=== PATIENT | female | born 1945 | race Caucasian/White ===

== ENCOUNTER 2016-09-30 17:26 | Inpatient (IN) | payer MEDICARE ==
[2016-09-30] VITALS (10 sets, daily range): BP systolic 124–220; BP diastolic 70–120
[~2016-09-30] VITALS: Ht 160 cm; Wt 47.7 kg
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
[~2016-09-30 17:26] MED LIST: ACETAMINOPHEN-H1 TA2 PO; AMLODIPINE BESY10 MG PO; AMOXICILLIN500 MG PO; ASPI-COR81 M1 PO; ASPIRIN CHEWABL81 MG PO; ASPIRIN81 M1 PO; AUGMENTIN 875 M1 TAB PO; AUGMENTIN 875875 MG PO; BACTROBAN2%; BENADRYL ALLERG25 M5 PO; BENADRYL25 MG PO; BISACODYL5 MG PO; CARAFATE1 G1 PO; CARAFATE1 GM/10 ML PO; CLARITIN10 MG PO; CLONAZEPAM2 MG PO; COREG25 MG PO; COREG6.25 MG PO; COZAAR100 MG PO; CYANOCOBALAMIN IJ; CYCLOBENZAPRINE10 MG PO; CYCLOBENZAPRINE5 MG PO; DARVOCET N 1001 TAB PO; DEMEROL IV; DESYREL50 MG PO; DIFLUCAN150 MG PO; DILANTIN; DILANTIN INFATA50 MG; DILANTIN INFATA50 MG PO; DILANTIN PO; DILANTIN100 MG PO; DOXYCYCLINE100 M3 PO; DULCOLAX100 MG PO; DULE1ARO1 INH; DUONEB 3 MG/3 ML3 M1 INH; DUONEB 3 MG/3 ML3 M1 NEB; Duoneb 3ML 3 MG/3 ML INH; EXCEDRIN EXTRA1 EACH PO; EXFORGE 10 MG-31 TA1; EXFORGE 10 MG-31 TAB PO; FIORICET 325 MG1 TAB PO; FLAGYL500 MG PO; FLEXERIL10 MG PO; FLEXERIL5 MG PO; FLONASE ALLERG9.9 ML INH; FLUTICASON0.05 MG/AC NAS; GABAPENTIN600 MG PO; HYDR1000 IM; HYDROCODONE BIT1 T11 PO; IMDUR SA60 M1 PO; IMDUR60 MG PO; ISOSORBIDE30 MG PO; K-TAB20 MEQ PO; KEPPRA500 MG PO; KLONOPIN1 M1 PO; KLONOPIN2 M1 PO; KLONOPIN2 MG PO; KLOR-CON 1010 ME1 PO; LAXATIVE5 MG PO; LEXAPRO10 MG PO; LIPITOR40 MG PO; LISINOPRIL10 M1 PO; LISINOPRIL20 MG PO; Lovenox30 MG/0.3 SC; MIRALAX17 GM/DOSE PO; MIRALAX17 GM/PACK PO; MUCINEX ER600 MG PO; MYCELEX TROCHE10 MG MM; NICOTINE T21 MG/24 H TD; NITROSTAT0.4 MG SL; NORCO 5-325 TA1 EACH PO; NORVASC10 MG PO; OYSTER SHELL C500 M2 PO; PERCOCET 325 MG1 TA2 PO; PHENERGAN25 MG RC; PHENYTOIN100 MG PO; PLAVIX75 M1 PO; PLAVIX75 MG PO; POTASSIUM CHLO20 ME1 PO; POTASSIUM CHLO20 ME3 PO; PRAVACHOL40 MG PO; PRAVASTATIN SOD40 MG PO; PREDNICOT20 MG PO; PRILOSEC OTC20 MG PO; PRILOSEC40 MG PO; PRINIVIL5 M1 PO; PROTONIX20 MG PO; PROTONIX40 MG PO; RANEXA500 M1 PO; SUCRALFATE; THERAGRAN1 TA1 PO; TOPAMAX100 M1 PO; TOPAMAX100 MG PO; TOPAMAX2 MG; TOPAMAX50 MG PO; TRAMADOL HCL50 MG PO; TRAZODONE100 MG PO; TRAZODONE50 MG; TRAZODONE50 MG PO; TYLENOL ARTHRI650 MG PO; TYLENOL ES500 MG; TYLENOL325 M1 PO; TYLENOL325 M2 PO; TYLENOL500 MG PO; ULTRAM50 MG PO; VENTOLIN 02.5 MG/3 M INH; VENTOLIN H0.09 MG/AC PO; VICODIN 5/500 505 MG PO; VICODIN1 TAB PO; VIT D; VITAMIN D2000 IU PO; VITAMIN D32000 I1 PO; ZITHROMAX Z PA250 MG PO; ZOFRAN4 MG PO; Zofran4 MG PO; [UNRECOGNIZED DRUG - OTHER] EPI; [UNRECOGNIZED DRUG - OTHER] IM
[2016-09-30 17:46] LABS: HEMATOCRIT 37.4 % (37.0-47.0); HEMOGLOBIN 12.5 g/dl (12.0-16.0); MEAN CELL VOLUME 86.6 fl (81.0-99.0); MEAN CORPUSCULAR HGB 28.9 pg (27.0-31.0); MEAN CORPUSCULAR HGB CONC 33.4 g/dl (33.0-37.0); PLATELET COUNT AUTOMATED 157 10*3/uL (130-400); RED BLOOD COUNT 4.32 10*6/uL (4.10-5.10); RED CELL DISTRI WIDTH 15.3 % (0-14.5); WHITE BLOOD COUNT 5.4 10*3/uL (4.8-10.8)
[2016-09-30 18:03] LABS: ALBUMIN 3.4 gm/dl (3.1-4.5); ALKALINE PHOSPHATASE 120 U/L (45-117); BILIRUBIN, TOTAL 0.2 mg/dl (0.2-1.0); BUN 12 mg/dl (7-24); CARBON DIOXIDE 26 mmol/L (21-32); CHLORIDE 100 mmol/L (98-107); EST GLOM FILT AFRICAN AMERICAN > 60 ml/min; GLUCOSE 87 mg/dL (65-99); MAGNESIUM 2.1 mg/dL (1.5-2.1); POTASSIUM 4.1 mmol/L (3.5-5.1); SGOT/AST 22 IU/L (3-35); SGPT/ALT 25 U/L (12-78); SODIUM 135 mmol/L (136-145); TOTAL PROTEIN 7.6 gm/dL (6.4-8.2)
[2016-09-30 18:04] LABS: TROPONIN I < 0.015 ng/ml (<0.045)
[2016-09-30 18:06] LABS: LYMPHOCYTE # 2.3 10*3/uL (1.3-4.4); MONOCYTE # 1.2 10*3/uL (0.1-1.0); NEUTROPHIL # 1.9 10*3/uL (2.3-7.9); NEUTROPHILS 35 % (47-73); TOTAL CELLS COUNTED 100 #CELLS
[2016-09-30 18:07] LABS: INTERNATIONAL NORM RATIO 1.1 (2.0-3.5); PLATELET SUFFICIENCY NORMAL (NORMAL); PROTHROMBIN TIME 11.2 SECONDS (9.0-12.4)
[2016-09-30] MEDS ORDERED: PLAVIX75 M1 PO (19:16)
[2016-09-30] MEDS ORDERED: PROTONIX40 MG PO (19:16)
[2016-09-30] MEDS ORDERED: KLONOPIN1 M1 PO (19:16)
[2016-09-30] MEDS ORDERED: DEBROX15 ML OT (19:17)
[2016-09-30] MEDS ORDERED: COREG12.5 M1 PO (19:17)
[2016-09-30] MEDS ORDERED: DILANTIN100 MG PO (19:17)
[2016-09-30] MEDS ORDERED: NEURONTIN600 MG PO (19:18)
[2016-09-30] MEDS ORDERED: KLOR-CON M2020 ME1 PO (19:18)
[2016-09-30] MEDS ORDERED: TOPAMAX100 M1 PO ×2 (19:18→19:19)
[2016-09-30] MEDS ORDERED: TRAZODONE50 MG PO (19:23)
[2016-09-30] MEDS ORDERED: TRAZODONE100 MG PO (20:45)
[2016-09-30 20:50] LABS: C-REACTIVE PROTEIN 0.67 MG/DL (0-0.3); TROPONIN I < 0.015 ng/ml (<0.045)
[2016-10-01 04:00] VITALS: BP 129/65
[2016-10-01 04:00] LABS: HEMOGLOBIN 11.7 g/dl (12.0-16.0); LYMPH # 0.7 10*3/uL (1.3-4.4); LYMPH % 23.6 % (27.0-41.0); MEAN CELL VOLUME 88.9 fl (81.0-99.0); MEAN CORPUSCULAR HGB 28.9 pg (27.0-31.0); MEAN CORPUSCULAR HGB CONC 32.5 g/dl (33.0-37.0); MEAN PLATELET VOLUME 10.5 fl (9.6-12.3); MONO # 0.2 10*3/uL (0.1-1.0); MONO % 7.7 % (3.0-9.0); NEUT % 68.4 % (47.0-73.0); PLATELET COUNT AUTOMATED 144 10*3/uL (130-400); RED BLOOD COUNT 4.05 10*6/uL (4.10-5.10); RED CELL DISTRI WIDTH 15.3 % (0-14.5)
[2016-10-01 04:10] LABS: PROTHROMBIN TIME 10.9 SECONDS (9.0-12.4)
[2016-10-01 04:15] LABS: ALBUMIN 3.3 gm/dl (3.1-4.5); ALKALINE PHOSPHATASE 107 U/L (45-117); BILIRUBIN, TOTAL 0.2 mg/dl (0.2-1.0); BUN 16 mg/dl (7-24); CARBON DIOXIDE 27 mmol/L (21-32); CHLORIDE 104 mmol/L (98-107); CHOLESTEROL 214 mg/dL (<200); CKMB 1.6 ng/ml (0.5-3.6); CPK 22 U/L (26-192); EST GLOM FILT AFRICAN AMERICAN > 60 ml/min; GLUCOSE 139 mg/dL (65-99); HDL CHOLESTEROL 62 mg/dl (40-60); LDL CHOLESTEROL 139 mg/dL (9-159); MAGNESIUM 2.5 mg/dL (1.5-2.1); PHOSPHOROUS 4.4 mg/dL (2.5-4.9); POTASSIUM 4.9 mmol/L (3.5-5.1); SGOT/AST 20 IU/L (3-35); SGPT/ALT 24 U/L (12-78); SODIUM 137 mmol/L (136-145); TOTAL PROTEIN 7.2 gm/dL (6.4-8.2); TRIGLYCERIDES 66 mg/dl (<150); TROPONIN I < 0.015 ng/ml (<0.045); VLDL CHOLESTEROL 13 mg/dL (6-40)
[2016-10-01 04:16] LABS: FREE T4 0.84 ng/dl (0.76-1.46); HEMOGLOBIN A1c 5.5 % (4.8-5.6)
[2016-10-01 08:00] VITALS: BP 153/90
[2016-10-01 08:42] LABS: VITAMIN D, 25-HYDROXY 36.8 ng/mL (30-100)
[2016-10-01 08:43] LABS: FOLIC ACID 4.15 ng/mL (>5.38)
[2016-10-01 08:58] VITALS: BP 162/90
[2016-10-01 16:00] VITALS: BP 150/86
[2016-10-01 20:00] VITALS: BP 139/84
[2016-10-02] VITALS: BP 127/74
[2016-10-02 05:58] LABS: HEMATOCRIT 34.4 % (37.0-47.0); MEAN CELL VOLUME 89.4 fl (81.0-99.0); MEAN CORPUSCULAR HGB 28.6 pg (27.0-31.0); MEAN PLATELET VOLUME 10.9 fl (9.6-12.3); PLATELET COUNT AUTOMATED 156 10*3/uL (130-400); RED BLOOD COUNT 3.85 10*6/uL (4.10-5.10); RED CELL DISTRI WIDTH 15.8 % (0-14.5); WHITE BLOOD COUNT 4.8 10*3/uL (4.8-10.8)
[2016-10-02 06:30] LABS: ATYPICAL LYMPHS 4 % (0-0); BASOPHIL # 0.1 10*3/uL (0-0.1); BASOPHILS 2 % (0-1); LYMPHOCYTE # 2.8 10*3/uL (1.3-4.4); MONOCYTE # 0.1 10*3/uL (0.1-1.0); MYELOCYTES 2 % (0-0); NEUTROPHIL # 1.6 10*3/uL (2.3-7.9); NEUTROPHILS 34 % (47-73); PLATELET SUFFICIENCY NORMAL (NORMAL); TOTAL CELLS COUNTED 100 #CELLS
[2016-10-02 08:00] VITALS: BP 144/82
[2016-10-02 16:00] VITALS: BP 166/84
[2016-10-02 20:00] VITALS: BP 160/72
== END 2016-10-03 05:20 | disposition left against medical advice (07) | DRG 305 ==
LOC: ED 17:26 → EDHOLD 18:27 → ICCU 18:50 → 4E 22:15
PROVIDERS: Hospitalist; Internal Medicine; Internal Medicine Hospice and Palliative Medicine; Registered Nurse
DX: I16.1 Hypertensive emergency (principal); E44.0 Moderate protein-calorie malnutrition; F33.2 Major depressive disorder, recurrent severe without psychotic features; E87.1 Hypo-osmolality and hyponatremia; Z68.1 Body mass index [BMI] 19.9 or less, adult; H61.21 Impacted cerumen, right ear; I25.118 Atherosclerotic heart disease of native coronary artery with other forms of angina pectoris; F34.1 Dysthymic disorder; F43.10 Post-traumatic stress disorder, unspecified; Z53.21 Procedure and treatment not carried out due to patient leaving prior to being seen by health care provider; F17.200 Nicotine dependence, unspecified, uncomplicated; G40.909 Epilepsy, unspecified, not intractable, without status epilepticus; R73.03 Prediabetes; F41.9 Anxiety disorder, unspecified; E53.8 Deficiency of other specified B group vitamins; G89.4 Chronic pain syndrome; I10 Essential (primary) hypertension; K21.9 Gastro-esophageal reflux disease without esophagitis; Z90.49 Acquired absence of other specified parts of digestive tract; Z95.5 Presence of coronary angioplasty implant and graft; Z90.721 Acquired absence of ovaries, unilateral; Z90.710 Acquired absence of both cervix and uterus; Z83.3 Family history of diabetes mellitus; Z80.8 Family history of malignant neoplasm of other organs or systems; Z88.6 Allergy status to analgesic agent; Z88.8 Allergy status to other drugs, medicaments and biological substances; Z91.041 Radiographic dye allergy status; Z79.899 Other long term (current) drug therapy

== ENCOUNTER 2017-04-01 14:08 | Inpatient (IN) | payer MEDICARE ==
[~2017-04-01] VITALS: Ht 165.1 cm; Wt 47.2 kg
--- NOTE | ~2017-04-01 | CON ---
[place], [place] REPORT OF CONSULTATION NAME: LUIS CARLOS HONEYCUTT UNIT #: [id number] ROOM: 407 DOCTOR: EVANS AMBROSE MD BIRTHDATE: [birth year] DOS: 04/03/2017 PSYCHIATRIC CONSULTATION CHIEF COMPLAINT: "I just want a regular ." HISTORY OF PRESENT ILLNESS: This is a 71-year-old white female who presented to [facility] Emergency Room with a complaint of having a seizure and having chest pain for a day. Per her report and chart, the patient states she has been without several of her home medications that include Dilantin and phenobarbital for several days. She did state that she fell and believed she had a seizure and was subsequently admitted to the medical floor for further medical stabilization and workup. Staff, since her admission, has noted that the patient has not been sleeping despite being given Restoril and trazodone. She has been awake throughout the entire night. Her appetite has also been somewhat faulty. She endorses that both of these things were occurring at home as well. She does have spotty memory loss and will often mix things that occurred in the distant past with the present. During my interview with her, her guardian was present and the guardian does note that her memory loss has been worsening over the last several months. To the point where she does feel that she needs more than the caregivers that she have currently in order to make certain that she stay safe. MENTAL STATUS: She is alert and oriented with significant time gaps. Mood does seem to be depressed. She is rather flat and blunted with her presentation and does endorse multiple neurovegetative symptoms. There are no symptoms of bertha or hypomania. There are no overt auditory or visual hallucinations noted. No delusions were voiced during my interview. DIAGNOSIS: Major depression, recurrent, severe. PLAN: I will go ahead and start her on Remeron 15 mg at bedtime. We are stopping the Restoril and trazodone. I will also order a prolactin level to make certain that she is not having seizures and is not exhibiting postictal confusion. After talking to her guardian and her, I do believe that she would benefit from a further [facility] admission to further evaluate and treat her underlying mental health issues. EVANS AMBROSE MD CM:CONSTR:REPORT OF CONSULTATION 1139 04/03/17 1245 interface
[~2017-04-01 14:08] MED LIST changes: +COREG12.5 M1 PO; +DEBROX15 ML OT; +KLOR-CON M2020 ME1 PO; +NEURONTIN600 MG PO
[2017-04-01 14:09] VITALS: BP 157/104
[2017-04-01 14:18] VITALS: BP 150/104
[2017-04-01 14:36] LABS: HEMATOCRIT 36.7 % (37.0-47.0); HEMOGLOBIN 12.1 g/dl (12.0-16.0); MEAN CELL VOLUME 85.7 fl (81.0-99.0); MEAN CORPUSCULAR HGB 28.3 pg (27.0-31.0); MEAN PLATELET VOLUME 12.1 fl (9.6-12.3); PLATELET COUNT AUTOMATED 132 10*3/uL (130-400); RED BLOOD COUNT 4.28 10*6/uL (4.10-5.10); RED CELL DISTRI WIDTH 16.3 % (0-14.5); WHITE BLOOD COUNT 4.4 10*3/uL (4.8-10.8)
[2017-04-01 14:53] LABS: ALBUMIN 3.8 gm/dl (3.1-4.5); ALKALINE PHOSPHATASE 104 U/L (45-117); BUN 7 mg/dl (7-24); CHLORIDE 103 mmol/L (98-107); CREATININE 0.84 mg/dL (0.55-1.02); POTASSIUM 3.1 mmol/L (3.5-5.1); SGOT/AST 14 IU/L (3-35); SGPT/ALT 15 U/L (12-78); SODIUM 135 mmol/L (136-145); TOTAL PROTEIN 7.6 gm/dL (6.4-8.2)
[2017-04-01 14:55] VITALS: BP 181/103
[2017-04-01 14:59] LABS: ATYPICAL LYMPHS 3 % (0-0); BASOPHILS 1 % (0-1); PLATELET SUFFICIENCY NORMAL (NORMAL); TOTAL CELLS COUNTED 100 #CELLS
[2017-04-01 15:00] LABS: BURR CELLS MODERATE
[2017-04-01 15:03] LABS: TROPONIN I < 0.015 ng/ml (<0.045)
[2017-04-01 15:06] VITALS: BP 190/100
[2017-04-01 15:48] LABS: ACT PARTIAL THROMBO TIME 27.5 SECONDS (20.8-31.5)
--- NOTE | 2017-04-01 16:05 | NUR ---
PATIENT TO RECEIVE 825MG OF DILANTIN... PUT IN 100ML OF NACL... RAN OVER AN HOUR ON PUMP.
[2017-04-01 16:30] VITALS: BP 162/88
[2017-04-01] MEDS ORDERED: CLONAZEPAM0.5 M1 PO (16:41)
[2017-04-01] MEDS ORDERED: OMEPRAZOLE D/R20 MG PO (16:43)
[2017-04-01] MEDS ORDERED: ASPIRIN CHEWABL81 MG PO (16:45)
--- NOTE | 2017-04-01 17:11 | NUR ---
PATIENT BROUGHT MEDICATION BOTTLES WITH HER TO THE HOSPITAL AND RN CALLED PATIENT'S PHARMACY TO VERIFY HER MEDICATION.
[2017-04-01 20:00] VITALS: BP 160/82
--- NOTE | 2017-04-01 20:00 | NUR ---
PATIENT RESTING IN BED. RESPONDS TO VERBAL COMMANDS. REORIENTED TO PERSON PLACE AND TIME. WILL MONITOR. BED IN LOWEST POSITION, CALL DARRICK TRACEY REACH, BED ALARM ON
[2017-04-02] VITALS: BP 148/59
--- NOTE | 2017-04-02 00:39 | NUR ---
PATIENT RESTING IN BED WITH NO S/S OF DISTRESS. RESPS EASY AND REGULAR. BED IN LOWETS POSITION, CALL LIGHT IN REACH
--- NOTE | 2017-04-02 03:31 | NUR ---
24 HR chart check completed.
[2017-04-02 06:02] LABS: HEMATOCRIT 40.3 % (37.0-47.0); HEMOGLOBIN 12.9 g/dl (12.0-16.0); MEAN CELL VOLUME 86.3 fl (81.0-99.0); MEAN CORPUSCULAR HGB 27.6 pg (27.0-31.0); PLATELET COUNT AUTOMATED 117 10*3/uL (130-400); RED BLOOD COUNT 4.67 10*6/uL (4.10-5.10); RED CELL DISTRI WIDTH 16.5 % (0-14.5); WHITE BLOOD COUNT 4.6 10*3/uL (4.8-10.8)
[2017-04-02 06:09] LABS: ALBUMIN 3.6 gm/dl (3.1-4.5); ALKALINE PHOSPHATASE 105 U/L (45-117); BUN 9 mg/dl (7-24); CHLORIDE 108 mmol/L (98-107); CREATININE 0.94 mg/dL (0.55-1.02); POTASSIUM 3.6 mmol/L (3.5-5.1); SGOT/AST 10 IU/L (3-35); SGPT/ALT 17 U/L (12-78); SODIUM 139 mmol/L (136-145); TOTAL PROTEIN 7.7 gm/dL (6.4-8.2)
[2017-04-02 06:21] LABS: BILIRUBIN NEGATIVE (NEGATIVE); BLOOD NEGATIVE (NEGATIVE); CLARITY CLEAR (CLEAR); COLOR YELLOW (YELLOW); GLUCOSE NEGATIVE (NEGATIVE); KETONE NEGATIVE (NEGATIVE); LEUKO ESTERASE NEGATIVE (NEGATIVE); NITRITE NEGATIVE (NEGATIVE); UROBILINOGEN 0.2 E.U./dl (0.2-1.0)
[2017-04-02 06:30] LABS: URINE AMPHETAMINES < 1000 (1000ng/ml); URINE BARBITURATES < 200 (200ng/ml); URINE BENZODIAZEPINES < 200 (200ng/ml); URINE CANNABINOIDS (THC) < 50 (50ng/ml); URINE COCAINE < 300 (300ng/ml); URINE METHADONE < 300 (300ng/ml); URINE OPIATES < 300 (300ng/ml)
[2017-04-02 06:31] LABS: BACTERIA TRACE
[2017-04-02 06:43] LABS: URINE PHENCYCLIDINE < 25 (25ng/ml)
[2017-04-02 07:21] LABS: ATYPICAL LYMPHS 4 % (0-0); BASOPHILS 2 % (0-1); TOTAL CELLS COUNTED 100 #CELLS
[2017-04-02 07:22] LABS: PLATELET SUFFICIENCY LOW (NORMAL)
[2017-04-02 08:00] VITALS: BP 121/59
--- NOTE | 2017-04-02 08:00 | NUR ---
PATIENT CONFUSED AT TIMES.
--- NOTE | 2017-04-02 10:30 | NUR ---
AM MEDS TAKEN. PATIENT AGITATED, YELLING AT NURSE.
--- NOTE | 2017-04-02 11:30 | NUR ---
PATIENT ORIENTED, MUCH MORE COOPERATIVE.
[2017-04-02 12:00] VITALS: BP 120/60
--- NOTE | 2017-04-02 12:22 | NUR ---
MEDICATED WITH NORCO FOR HEADACHE SHE RATES A 10 ON THE PAIN SCALE.
--- NOTE | 2017-04-02 14:10 | NUR ---
EATING LUNCH. ORIENTED AND COOPERATIVE AT PRESENT.
[2017-04-02] MEDS ORDERED: DILANTIN100 MG PO (14:21)
--- NOTE | 2017-04-02 15:32 | NUR ---
DR. ROSS NOTIFIED OF PATIENT'S CONFUSION.
--- NOTE | 2017-04-02 15:32 | NUR ---
PATIENT CONFUSED, INSISTING THAT SHE HAS A COFFEE POT IN THE BATHROOM. STAFF AT THE BEDSIDE AND ATTEMPTING TO REORIENT HER. PATIENT BECOMES AGITATED WHEN STAFF ATTEMPT TO REORIENT HER.
--- NOTE | 2017-04-02 15:45 | NUR ---
DR. ROSS IN TO SEE PATIENT.
[2017-04-02 16:00] VITALS: BP 134/86
--- NOTE | 2017-04-02 17:04 | NUR ---
MEDICATED WITH NORCO FOR HEADACHE SHE RATES A 9 ON THE PAIN SCALE.
--- NOTE | 2017-04-02 18:18 | NUR ---
SITTING UP EATING DINNER. NO FURTHER COMPLAINTS OF HEADACHE.
[2017-04-02 19:22] LABS: BILIRUBIN NEGATIVE (NEGATIVE); BLOOD TRACE-INTACT (NEGATIVE); CLARITY CLEAR (CLEAR); COLOR YELLOW (YELLOW); GLUCOSE NEGATIVE (NEGATIVE); KETONE NEGATIVE (NEGATIVE); LEUKO ESTERASE NEGATIVE (NEGATIVE); NITRITE NEGATIVE (NEGATIVE); PH 5.5 (5.0-9.0); SPECIFIC GRAVITY 1.015 (1.005-1.030); UROBILINOGEN 0.2 E.U./dl (0.2-1.0)
[2017-04-02 19:29] LABS: BACTERIA TRACE; EPITHELIAL CELLS 15-20; RBC 0-2 rbc/hpf (0-2)
[2017-04-02 20:00] VITALS: BP 151/64
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
--- NOTE | 2017-04-02 23:40 | NUR ---
PT CONT. TO C/O H/A. MEDICATED WITH NORCO PO. PT PLEASANT AND COOPERATIVE AT THIS TIME.
[2017-04-03] VITALS: BP 156/76
--- NOTE | 2017-04-03 01:54 | NUR ---
PT FREQUENTLY PUTTING COATING MACHINE FEEDER LIGHT FOR VARIOUS COMPLAINTS. 1:1, PT TEACHING, SNACKS/FLUIDS, COMFORT INTERVENTIONS ALL INEFFECTIVE. BED ALARM ON WITH CALL LIGHT IN REACH.
--- NOTE | 2017-04-03 03:04 | NUR ---
PT PUT CERTIFIED GREEN BUILDING ENGINEER LIGHT. PT WANTING STAFF TO TAKE HER OUTSIDE TO SMOKE. PT TEACHING GIVEN ON HOSPITAL SMOKING POLICY. PT ARGUING WITH STAFF. PT NOT EASILY REDIRECTED. CALL LIGHT IN REACH.
--- NOTE | 2017-04-03 03:37 | NUR ---
PT PLACED CALL LIGHT ON. PT WANTING THIS NURSE TO TAKE HER OUT TO SMOKE. PT ADVISED THIS IS NOT ALLOWED. CALL LIGHT IN REACH.
--- NOTE | 2017-04-03 03:37 | NUR ---
24 HR chart check completed.
--- NOTE | 2017-04-03 05:55 | NUR ---
PT C/O PASSING LOTS OF FLATUS. PT DID NOT SLEEP LAST NIGHT. PT TEACHING GIVEN ON NEED FOR SLEEP TO PROMOTE HEALING AND ENCOURAGED TO REST. PT STATES SHE SLEPT FOR 10 MINUTES. CALL LIGHT IN REACH. BLOOD DRAWN FROM [facility] PREVIOUSLY FOR INSURANCE UNDERWRITER WITHOUT DIFF.
[2017-04-03 06:45] LABS: MEAN CELL VOLUME 88.8 fl (81.0-99.0); MEAN CORPUSCULAR HGB 28.6 pg (27.0-31.0); MEAN CORPUSCULAR HGB CONC 32.2 g/dl (33.0-37.0); MEAN PLATELET VOLUME 12.4 fl (9.6-12.3); PLATELET COUNT AUTOMATED 115 10*3/uL (130-400); RED BLOOD COUNT 3.67 10*6/uL (4.10-5.10); WHITE BLOOD COUNT 6.6 10*3/uL (4.8-10.8)
[2017-04-03 06:46] LABS: BUN 18 mg/dl (7-24); CHLORIDE 109 mmol/L (98-107); CREATININE 0.87 mg/dL (0.55-1.02); POTASSIUM 3.6 mmol/L (3.5-5.1); SODIUM 140 mmol/L (136-145)
[2017-04-03 06:51] LABS: HEMATOCRIT 32.6 % (37.0-47.0); HEMOGLOBIN 10.5 g/dl (12.0-16.0)
--- NOTE | 2017-04-03 07:25 | NUR ---
UP TO BSC. ASSESSMENT COMPLETE. PT C/O URGENCY AND FREQUENCY, DENIES PAIN UPON URINATION. PT APPEARS TO BE ALERT AND ORIENTED X 3. ACKNOWLEDGES SHE HAS PERIODS OF CONFUSION AND SHORT TERM MEMORY LOSS. LUNGS DIM AND I&E WHEEZE NOTED, SPO2 100%.PT C/O WANTING NICOTINE INHALER.VOICES NO OTHER NEEDS AT THIS TIME.
--- NOTE | 2017-04-03 07:44 | NUR ---
NOTIFIED DR AMBROSE OF NEW CONSULT FOR ALTERED MENTAL STATUS.
--- NOTE | 2017-04-03 07:48 | NUR ---
ORDER RECIEVED FOR NICOTINE INHALER FROM DR BARTON BUT PHARMACY UNABLE TO PROVIDE IT UNTIL SHIPMENT COMES IN.
[2017-04-03 07:56] LABS: BURR CELLS FEW; PLATELET SUFFICIENCY NORMAL (NORMAL); TOTAL CELLS COUNTED 100 #CELLS
--- NOTE | 2017-04-03 08:08 | NUR ---
24 HR chart check completed.
--- NOTE | 2017-04-03 08:30 | NUR ---
Hand Bulldozer in to talk to patient. Patient states lives at HOME ALONE with . There are 0 steps in the home. Physician: [facility] Pharmacy: [facility] IN [facility] services: [employer] 7 DAYS A WEEK FOR 3H A DAY-DOES NOT KNOW WHAT COMPANY Patient's level of ADLs: MODERATE ASSIST Patient has working utilities: YES DME: NONE Follow-up physician's appointment after d/c: WILL BE MADE PRIOR TO DC Does patient want to access PORTAL?: Discharge plan HOME. CHANDNI VILLAGOMEZ
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
--- NOTE | 2017-04-03 10:07 | NUR ---
NOTIFIED DR GUERRIER OF NEW CONSULT.
--- NOTE | 2017-04-03 11:04 | NUR ---
MORPHINE 2 MG GIVEN FOR C/O SEVERE H/A PAIN,03/14.
--- NOTE | 2017-04-03 13:40 | NUR ---
Discharge instructions reviewed with patient/family. Patient receptive and verbalizes understanding. Follow-up care arranged. Written instructions given to patient/family. DIANA CABEZAS
== END 2017-04-03 13:26 | disposition home health service (06) | DRG 101 ==
LOC: ED 14:08 → EDHOLD 15:46 → 4E 15:49
PROVIDERS: Emergency Medicine; Family Medicine; Internal Medicine; ADMIT Internal Medicine
DX: G40.909 Epilepsy, unspecified, not intractable, without status epilepticus (principal); E44.0 Moderate protein-calorie malnutrition; D69.6 Thrombocytopenia, unspecified; F33.2 Major depressive disorder, recurrent severe without psychotic features; E83.41 Hypermagnesemia; E87.1 Hypo-osmolality and hyponatremia; E87.8 Other disorders of electrolyte and fluid balance, not elsewhere classified; I16.1 Hypertensive emergency; Z68.1 Body mass index [BMI] 19.9 or less, adult; D72.810 Lymphocytopenia; Z66 Do not resuscitate; E87.6 Hypokalemia; E78.5 Hyperlipidemia, unspecified; I10 Essential (primary) hypertension; K52.9 Noninfective gastroenteritis and colitis, unspecified; I25.10 Atherosclerotic heart disease of native coronary artery without angina pectoris; M54.9 Dorsalgia, unspecified; G89.4 Chronic pain syndrome; F17.210 Nicotine dependence, cigarettes, uncomplicated; F41.9 Anxiety disorder, unspecified; K21.9 Gastro-esophageal reflux disease without esophagitis; R73.03 Prediabetes; R07.9 Chest pain, unspecified; Z51.5 Encounter for palliative care; Z88.6 Allergy status to analgesic agent; Z88.7 Allergy status to serum and vaccine; Z91.041 Radiographic dye allergy status; Z85.00 Personal history of malignant neoplasm of unspecified digestive organ; Z88.8 Allergy status to other drugs, medicaments and biological substances; Z89.021 Acquired absence of right finger(s); Z90.710 Acquired absence of both cervix and uterus; Z90.49 Acquired absence of other specified parts of digestive tract; Z90.722 Acquired absence of ovaries, bilateral; Z95.5 Presence of coronary angioplasty implant and graft; Z83.3 Family history of diabetes mellitus; Z82.49 Family history of ischemic heart disease and other diseases of the circulatory system; Z80.8 Family history of malignant neoplasm of other organs or systems; Z79.82 Long term (current) use of aspirin; Z79.899 Other long term (current) drug therapy

== ENCOUNTER 2017-04-03 13:26 | Inpatient (IN) | payer MEDICARE ==
--- NOTE | ~2017-04-03 | PR ---
[place], [place] PROGRESS NOTE NAME: [id number] UN[facility] #: [id number] ROOM: 314 DOCTOR: EVANS AMBROSE MD BIRTHDATE: [birth year] DOS: 04/13/2017 INTERVAL NOTE CHIEF COMPLAINT: "I am going home. I have already called the [facility] and I am overturning my DPOA and I am going home." SUMMARY OF THE VISIT: The patient was interviewed in the dining area. She engaged in confrontational dialogue with me. She is convinced that she no longer has a power of sprigger and per her report then is not going to anywhere, but home. When I tried to reorient and reeducate her, she began to escalate and get upset. I finally had to state to her that we had to agree to disagree that my understanding of the situation obviously differs than hers. She continues to be somewhat confrontational on this whole idea of placement. MENTAL STATUS: She is alert and oriented with significant time gaps. Mood does seem to be trending towards euthymia. Affect is more appropriate. There are no symptoms of bertha or hypomania. There are no auditory or visual hallucinations. There are some delusions present. Memory has gaps. PLAN: I will maintain her current psychotropic regimen, engage in individual and hurley milieu activity, returning to the least restrictive environment when stable. EVANS AMBROSE MD CM:PNTRANS [id number] EVANS AMBROSE MD 04/14/17 0434 interface
--- NOTE | ~2017-04-03 | PR ---
[place], [place] PROGRESS NOTE NAME: [facility]CUTT [id number] UNIT #: [id number] ROOM: 314 DOCTOR: EVANS AMBROSE MD BIRTHDATE: [birth year] DOS: 04/14/2017 CHIEF COMPLAINT: "I'm going to the court, I'm going to the [facility], I am having my DPOA overturn. If I have to go to that snf, I am going to get the hell out of there." SUMMARY OF THE VISIT: The patient was interviewed in the dining area. She continues to be fixated on going home and does not want to go into a long-term care facility. She remains though episodically confused. She was upset with me that I had not given her her pain meds that I had promised, although I did not promise her any pain pills and I attempted to redirect her to state that is not something that I normally do and that was the other doctor. She vehemently was convinced that I was breaking my promise to her to give her the pain pills. She was somewhat redirectable, however, and was able to reengage in group therapy after I left. MENTAL STATUS: She is alert and oriented to person and place, but not necessarily time. She does have significant gaps in her memory. Mood does still seem to be somewhat labile, but some of this is situationally based. She is tolerating the current medication regimen well and I note no sedation, somnolence, extrapyramidal symptoms, or other side effects. PLAN: At this point, we are just waiting the to come back from the state in order to admit her to [facility]. All of her scripts have been printed in lieu of this. We will continue to engage her in individual and hurley milieu activity. We will discharge then when the is available. EVANS AMBROSE MD CM:PNTRANS [id number] EVANS AMBROSE MD 04/15/17 0013 interface
--- NOTE | ~2017-04-03 | PR ---
[place], [place] PROGRESS NOTE NAME: LUIS CARLOS HONEYCUTT [facility] #: [id number] UNIT #: [id number] ROOM: 314 DOCTOR: EVANS AMBROSE MD BIRTHDATE: [birth year] DOS: 04/11/2017 CHIEF COMPLAINT: "Give me back my Klonopin. I want my Klonopin that Dr. Goddard gave me." SUMMARY OF THE VISIT: The patient was interviewed in the dining area where she sat eating her breakfast. At first, she engaged readily in conversation, did report to me that she did not want to go into an assisted living and that she has talked to her power of workers compensation attorney. Later she stated that she and her power of workers compensation attorney were planning to measure the room size of the different assisted living facilities. She continued to jump from topic to topic. Later after I finished rounding on her and began rounding on other patients, she attempted to interject and demanded that I come back and demanded that I place her back on Klonopin and not the Vistaril that she is on now for the anxiety. MENTAL STATUS: She remains somewhat labile, but redirectable. She does tend to get on to tangents and does tend to mimic some of the symptoms that some of the patients around her are exhibiting. Overall, she is redirectable. She continues to have memory gaps and does require some prompting and redirection. She is tolerating the current medication regimen well and I see no side effects from the medicines themselves. MENTAL STATUS: She is alert and oriented to person, place, and approximate to time. Mood still is labile, but redirectable. There are no symptoms of hypomania or bertha. There are no overt auditory or visual hallucinations. No delusions, no paranoia. Short term memory has gaps, otherwise she is intact. PLAN: At the present time, I will maintain her current psychotropic regimen, continue to explore possible discharge options and will discharge then when psychiatrically stable. EVANS AMBROSE MD CM:PNTRANS [id number] EVANS AMBROSE MD 04/11/17 1129 interface
--- NOTE | ~2017-04-03 | PR ---
[place], [place] PROGRESS NOTE NAME: [facility]CUTT [id number] #: [id number] ROOM: 314 DOCTOR: EVANS AMBROSE MD BIRTHDATE: [birth year] DOS: 04/06/2017 CHIEF COMPLAINT: "I am so confused, I do not want to go to [facility], I could never live in a [address]." SUMMARY OF THE VISIT: The patient was interviewed in the dining area. She did seem to be much brighter and more engaging. She does continue to complain of episodic confusion and memory loss and is worried that this is something that will progress. She wants us to attempt to improve that. She vehemently does not want to go to [facility], stating that she has been there and that the rooms are too small for her and that she does not feel that she could function adequately and be happy living in a 1 room apartment. She would rather be able to function more independently, having aids in her home and be able to live within those constraints. She convincingly denies any medication side effects. MENTAL STATUS: She is alert and oriented to person, place and more approximate to time. Mood does seem to be more euthymic. Affect is more appropriate. There are no symptoms of bertha or hypomania. There are no overt auditory or visual hallucinations. No delusions, no paranoia. Short term memory has gaps, otherwise she is intact. PLAN: I will augment her Exelon patch with Namenda 5 mg a day. I will plan to gradually bring the Namenda to its therapeutic level of 10 mg b.i.d., continue to engage in individual and hurley milieu activity with the ultimate plan then to return home with home health aides when stable. EVANS AMBROSE MD CM:PNTRANS 4 EVANS AMBROSE MD 04/06/1741 interface
--- NOTE | ~2017-04-03 | PR ---
[place], [place] PROGRESS NOTE NAME: [facility]OS [facility]CUTT [id number] UNIT #: [id number] ROOM: 314 DOCTOR: EVANS AMBROSE MD BIRTHDATE: [birth year] DOS: 04/07/2017 CHIEF COMPLAINT: "I want out of here AMA." SUMMARY OF THE VISIT: The patient was interviewed in the dining area. She reported to me that she would like to leave here AMA. I discussed with her at length the whole issue regarding her power of divorce attorney and whether or not that this would effectively kick in. Note, she did state that she realized that if her power of divorce attorney did kick in that her power of divorce attorney would have say as to whether or not she stayed in the hospital or not. She continues to exhibit, however, episodic confusion and disorientation. She hides it well with an extreme amount of confabulation. MENTAL STATUS: She is alert and oriented to person, place, approximate to time. Mood does seem to be trending towards euthymia. Affect is more appropriate. There is no bertha or hypomania. There are no overt auditory or visual hallucinations. No delusions, no paranoia. Short term memory is poor. PLAN: I will go ahead and increase Namenda to 5 mg b.i.d., augmenting Exelon patch at 9.5 mg a day, maintain her other psychotropics as they do seem to be impacting positively on her mood. I did consult Dr. Vance Dao, psychologist, to check for competency. After discussing this case with Adult Protective Services and her DPOA both have concerns about her returning home even with supervision and have both suggested assisted living placeLment. I tend to agree with this and believe that she would do better in an assisted living even if she does not want this as an option. Depending on Dr. Dao's findings, we will determine whether or not the POA kicks in and will then determine the appropriate placement post-discharge. EVANS AMBROSE MD CM:PNTRANS 0916 [id number] EVANS AMBROSE MD 04/07/17 1008 interface
--- NOTE | ~2017-04-03 | CON ---
[place], [place] REPORT OF CONSULTATION NAME: [facility]: [id number] UN[facility] #: [id number] ROOM: 314 DOCTOR: BRAXTON GUERRIER ED.D (SHANA) BIRTHDATE: [birth year] DOS: 04/07/2017 HISTORY OF PRESENT ILLNESS: The patient is a 71-year-old female referred by Dr. Ambrose for competency evaluation. At the present time, [facility]. This patient states she is and had 2 children; however, her one son of an aortic aneurysm approximately 5 years ago. This patient has not worked for many years due to multiple health related problems. She was last following with the [facility] in [place], [place] for her medical care. Her medical history is pertinent for coronary artery disease, pacemaker, seizure disorder, major depression and mild neurocognitive disorder. Her medications include Coreg, Neurontin, omeprazole, Dilantin, Topamax, Remeron and Exelon. This patient was awake, alert and oriented in all three spheres. She denies any suicidal ideation or plan at this time. She does not appear to be having any type of active hallucinations at this time. She has a great deal of difficulty understanding the fact that due to her significant medical problems, it would be very difficult for her to remain living independently. Her caregivers, 6 days per week, still was having a difficult time. She, most recently, did not get to the doctor and therefore, was not taking her medications and was having seizures. She clearly is not capable of making independent decisions regarding her medical care, and in my opinion, her decision should be made by her healthcare power of patent prosecution attorney, Leighann Montejo. I did discuss this with Leighann Montejo and she is willing to help the patient. According to the staff and Adult Protective Services and the patient's power of patent prosecution attorney, this patient should be in some type of assisted living facility. They have found her numerous times after she had a seizure and it is clear that she is in a quite precarious situation living independently. Worker has indicated that she will help the patient with any type of placement. DIAGNOSES: 1. Major depressive disorder, recurrent. 2. Minor neurocognitive disorder. RECOMMENDATIONS: In my opinion, all decisions should be made by the patient's healthcare power of patent prosecution attorney. Thank you very much for this consult. BRAXTON GUERRIER ED.D CM:CONSTR:REPORT OF CONSULTATION 1715 04/08/17 0024 interface EVANS AMBROSE MD
--- NOTE | ~2017-04-03 | PR ---
[place], [place] PROGRESS NOTE NAME: LUIS CARLOS [facility] #: [id number] UNIT #: [id number] ROOM: 314 DOCTOR: DOMO HICKS SATHISH BIRTHDATE: [birth year] DOS: 04/09/2017 CHIEF COMPLAINT: "I want my coffee." SUMMARY OF VISIT: The patient was attempted to be assessed in the dining room, very agitated, fixated on not having her coffee. Fixated on, "I saw him going there at 10 to 6 and start coffee at 10 after 6, I smelt the coffee, it is now 0615 where is my coffee." I could not redirect her. She was fixated on this. Very irritable, expressive. I tried to redirect her by saying that other patients on the unit, they need to get their meds first that is the priority, they will get penalized if they do not get the medications in a timely fashion. She said she understood, but she did not care. MENTAL STATUS: She is alert and oriented to person, place, approximate time. Mood, a little irritable. I am going to give her the benefit of doubt that she is just grumpy right now because she does not have her caffeine. When I peeked behind the door, the coffee was still brewing so I tried to tell her that, I think she thought I was making this up. So I did talk to the nurses as soon as coffee was available to please give it to this patient and see if we can take the edge off of her. PLAN: I went ahead and increased her Namenda 10 mg b.i.d. She is already on Exelon at 9.[address] Dao did deem her incompetent to make decisions on her own, so we are deferring to her POA. I read back through her chart. She does have these moments of just this explosiveness, irritability, impulsivity. I want to see if the increase in the Namenda helps; if not, we may need to look at maybe adding something else to take the edge off of her irritability, but as I am observing her now, she is sitting quietly in the dining room sipping on coffee, so it just may have been the fact that she wanted her coffee first thing in the morning and that was it. So we will keep monitoring her and we will go from there. SATHISH HICKS CNP CM:INEZ [phone] DOMO HICKS 04/10/17 0141 interface
--- NOTE | ~2017-04-03 | PR ---
[place], [place] PROGRESS NOTE NAME: [facility] #: [id number] UNIT #: [id number] ROOM: 314 DOCTOR: EVANS AMBROSE MD BIRTHDATE: [birth year] DOS: 04/12/2017 CHIEF COMPLAINT: "I want out of here. I want to go home. I am getting an workers compensation defense attorney to overturn my power of workers compensation defense attorney." SUMMARY OF THE VISIT: The patient was interviewed in the dining area. She was rather irate and irritable and was fixated on being able to return home. She stated to me that she was planning to get an workers compensation defense attorney to be able to overturn her power of workers compensation defense attorney and that she has talked to her power of workers compensation defense attorney and her power of workers compensation defense attorney wants her home. This is in valentino contrast to what we have heard through the treatment team where the power of workers compensation defense attorney has consistently reported that she has got fears about the patient returning home and does feel that she needs to be in a more supervised environment such as an assisted living situation. I attempted to support and redirect the patient and did suggest that we set up a meeting with the high school social science teacher and her power of workers compensation defense attorney to discuss this matter at length. She did calm as we talked longer and did joke with me about wanting a piece of toast later. Overall, there is a steady improvement in her mood and affect. MENTAL STATUS: She is alert and oriented with some time gaps. Mood does seem to be trending towards euthymia. Affect is more appropriate. There is no bertha or psychosis noted. There is a great deal of overriding anxiety based on the situational factors that are occurring. Memory has some gaps. PLAN: I will increase her hydroxyzine from 25 mg 3 times a day to 50 mg 3 times daily to act as a short-acting antianxiety agent. We will attempt to engage her in individual and hurley milieu activity. We will set up a meeting with her power of workers compensation defense attorney if need be to reinforce the need for her being placed in a more supervised living situation. We will engage her in individual and hurley milieu activity, returning to the least restrictive environment when psychiatrically stable. EVANS AMBROSE MD CM:PNTRANS [phone] EVANS AMBROSE MD 04/12/17 0943 interface
--- NOTE | ~2017-04-03 | PR ---
[place], [place] PROGRESS NOTE [facility] [id number] UN[facility] #: [id number] ROOM: 314 DOCTOR: DOMO HICKS BIRTHDATE: [birth year] DOS: 04/08/2017 CHIEF COMPLAINT: "Good morning." SUMMARY OF VISIT: The patient was assessed in the dining room area. She engaged in minimal conversation, mostly was focused on talking to dietary, almost being passive aggressive with me. Let me know that she did not want to talk to me, so I just observed her from far, her engaging with other patients, female patient at the table, her conversations, etc. No voiced complaints from nursing or issues. MENTAL STATUS: She appears to be alert and oriented to person, place, and approximate time. Mood seemed euthymic. Affect other than turning her back to me and not wanting to talk to me, it seemed appropriate. I can see from the notes in the computer that she was wanting to leave and she had a realization yesterday that she could do a lot as far as leaving without her power of transactional attorney input, so I am wondering if this is part of the reason why she is being a little bit passive aggressive with me. PLAN: Dr. Santillan increased her Namenda to 5 mg b.i.d. and augmented her Exelon with this. It is currently at 9.5 mg every day patch. We will continue with the current psychotropics. He did consult Dr. Dao for ____ yesterday. I do not see anything in the computer right now at this point in time as far as concerns from the hospitalist or anything. Dr. Dao's note does state from yesterday that his recommendations in his opinion that all decisions should be made by the patient's healthcare power of transactional attorney, so we would definitely defer to this individual for her continued care. I am going to continue with the current medications as is. Let us see how she interacts with me tomorrow and we will go from there. SATHISH HICKS CNP CM:PNMERCEDES [phone] DOMO HICKS 04/08/171946 interface
--- NOTE | ~2017-04-03 | PR ---
[place], [place] PROGRESS NOTE NAME: LUIS CARLOS [facility] #: [id number] UNIT #: [id number] ROOM: 314 DOCTOR: EVANS AMBROSE MD BIRTHDATE: [birth year] DOS: 04/05/2017 CHIEF COMPLAINT: "I have some questions for you, I don't like that one medicine." SUMMARY OF THE VISIT: The patient was interviewed in the dining area where she was eating her breakfast. She stopped and engaged in conversation. She was initially upset about the medication that was causing her diarrhea and I explained to her that the purpose of the medicine and offered to lower it slightly. However, when she realized that the medicines purpose was to help clear her level of concentration and cognition, she reported to me that she would rather put up with the side effects if it would help her cognitively. That said the patient does remain with significant memory impairment, I am not clear if she even recognized me from my day-to-day visits. She was more pleasant and engaging; however, and exhibited no agitation or aggression. Other than the diarrhea that she mentioned she is not exhibiting any other side effects from the medications themselves. MENTAL STATUS: She is alert and oriented to person, place, but not necessarily to time. Mood does seem to be trending towards euthymia, although there is still an element of depression and anxiety noted. There are no gross psychotic symptoms noted or bertha. Short term memory is poor. PLAN: I will increase her Exelon patch from 4.6 to 9.5 mg daily. We will discuss the case with social work job titles to see if any inroads have been made to be able to have her be admitted to [facility] in [place]. We will engage her in individual and hurley milieu activity with the plan to return to the least restrictive environment when psychiatrically stable. EVANS AMBROSE MD CM:PNTRANS [phone] EVANS AMBROSE MD 04/05/17 1037 interface
--- NOTE | ~2017-04-03 | PR ---
[place], [place] PROGRESS [facility] [id number] [facility] #: [id number] ROOM: 314 DOCTOR: EVANS AMBROSE MD BIRTHDATE: [birth year] DOS: 04/10/2017 CHIEF COMPLAINT: "I want out of here. I want ____ as my doctor. I want out of here. I'm going to sign out AMA." SUMMARY OF THE VISIT: The patient was interviewed as she was sitting eating her breakfast. She was initially agitated and demanded that she leave. She also stated to me that her DPOA has clearly told her that she wants her to return back home and not go to an assisted living. This is in valentino contrast to reality where we know for a fact that the DPOA is strongly recommending that we find her placement into an assisted living facility. Dr. Vance Dao, psychologist, has already evaluated the patient and deemed her incompetent allowing the POA to kick in. The patient continues to confabulate quite convincingly. She does seem to be somewhat anxious and very irritable, but does redirect quickly. MENTAL STATUS: She is alert and oriented with time gaps. Mood seems labile, but redirectable. Affect is appropriate. There is no hypomania or bertha. There are no overt auditory or visual hallucinations. Short term memory is exceedingly poor. PLAN: I will maximize out her Exelon patch from 9.5 to 13.3 mg daily. I will also increase the Vistaril straight order from 25 mg twice a day to 3 times a day in an effort to try to help decrease her overall anxiety level. We will engage her in individual and hurley milieu activity with the ultimate plan to return to the least restrictive environment when psychiatrically stable. EVANS AMBROSE MD CM:PNTRANS [phone] EVANS AMBROSE MD 04/11/17 0317 interface
--- NOTE | ~2017-04-03 | WRIGHTHP ---
[place], [place] PATIENT HISTORY AND PHYSICAL EXAM NAME: LUIS CARLOS [facility] #: [id number] UNIT #: [id number] ROOM: 314 DOCTOR: EVANS AMBROSE MD BIRTHDATE: [birth year] DOS: 04/04/2017 CHIEF COMPLAINT: "I am just so depressed and my head is going to explode." HISTORY OF PRESENT ILLNESS: This is a 71-year-old white female who presented to the emergency room at [facility] with a complaint of having a seizure and having chest pain for a day. Per the chart and the patient, she has been without several of her home medications that included Dilantin and phenobarbital for days. She states that she fell and believes she had a seizure and subsequently was admitted to the medical floor for further medical stabilization. While there, she was found to have spotty memory loss and was endorsing multiple signs suggestive of depression including poor sleep and appetite, energy, anhedonia, hopeless, helpless feelings, crying spells, and inability to cope. She was medically stabilized and sent now to the [facility] for further psychiatric stabilization. MENTAL STATUS: The patient is alert and oriented with time gaps. Mood does seem to be very depressed. She is very somatic. She endorses multiple neurovegetative symptoms and is rather flat and blunted. There is no bertha. There is no psychosis. Short term memory is poor and she processes slowly. DIAGNOSIS: Major depression, recurrent, severe. PLAN: I will go ahead and start her on Remeron 15 mg at bedtime for the depressive symptomatology that is present. Also, start her on Exelon patch 4.6 mg a day to improve or maintain ADLs, behavior and cognition. Screening examinations reveal her to have a low normal vitamin B12 level, so I will start vitamin B12 injection 1000 mcg IM today. Her vitamin D level was low at 23.1, so I will augment with vitamin D 50,000 international units every Monday. Folic acid level was also low at 5.03, so I will treat with folic acid 1 mg daily. Serum ammonia level is elevated at 40, so I will start lactulose 20 grams b.i.d. Engage in individual and hurley milieu activity with the plan to attempt to place in an assisted living or alternative placement when stable. [place], [place] PATIENT HISTORY AND PHYSICAL EXAM NAME: LUIS CARLOS [facility] UNIT #: [id number] ROOM: [facility] DOCTOR: VEANS AMBROSE MD BIRTHDATE: [birth year] EVANS AMBROSE MD CM:HISPHYS:PATIENT HISTORY AND PHYSICAL EXAMINATION [phone] EVANS AMBROSE MD 04/04/17 1059 interface
[~2017-04-03 13:26] MED LIST changes: +CLONAZEPAM0.5 M1 PO; +OMEPRAZOLE D/R20 MG PO
[2017-04-03 13:49] VITALS: BP 153/79
--- NOTE | 2017-04-03 13:49 | NUR ---
LUIS CARLOS HONEYCUTT a 71 year old F admitted via wheel chair from the 4th floor as a voluntary admission via POA. Arrived on unit at 1349. ALLERGIES: SEE LIST. Vital signs are: 97.7-71-18 153/79. All consents received verbally via telephone with POA and 2nd RN. Admitted under the services of Dr. HALIE SOLARES,[facility]. A search was conducted and hazardous articles were removed. Client was oriented to the unit. LUIS DELGADO
[2017-04-03 14:26] VITALS: BP 153/79
--- NOTE | 2017-04-03 14:28 | NUR ---
PATIENT IS ALERT AND ORIENTED WITH MODERATE ST MEMORY GAPS. WAS PLEASANT AND COOPERATIVE DURING ADMISSION ASSESSMENTS UNTIL ABOUT HALF WAY. PATIENT NOW REFUSING TO ANWSER QUESTIONS. BECAME INCREASINGLY CONFUSED AND AGITATED, THREATENING STAFF. PARANOID DELUSIONS NOTED. STATES "YOU TOOK MY STUFF." ATTEMPTED TO REORIENT WITH NO EFFECT. REDIRECTION INEFFECTIVE. TO BE NOTIFIED AT THIS TIME.
--- NOTE | 2017-04-03 14:47 | NUR ---
MADE AWARE OF LABILE MOOD AND CONFUSION. ADMISSION ORDERS RECEIVED.
--- NOTE | 2017-04-03 19:54 | NUR ---
DR TYLER NOTIFIED THAT HOME MEDICATIONS NEED ORDERED
[2017-04-03 20:26] VITALS: BP 156/82
--- NOTE | 2017-04-03 21:35 | NUR ---
CONTINUES TO REFUSE FOOD. DID TAKE MEDICATIONS. GAIT SLIGHTLY UNSTEADY GOING TO BATHROOM. REFUSED 1:1. CLIENT STATES "YOU GUYS ARE JUST WATCH DOGS" WHEN ASKED WHAT SHE MEANT SHE REPLIED "YOU JUST STAND THERE AND MAKE SURE I TAKE MY PILLS" OFFERED TO TALK WITH HER BUT SHE REFUSED. WENT TO BATHROOM AND RETURNED TO BED. DID SAY SHE HAS LOST ALOT OF WEIGHT AND HER DENTURES ARE AT HOME BECAUSE THEY DON'T FIT. WEARING GLASSES IN BED AND THEY ARE BENT UP AND LOOSE. DECLINED TO PUT THEM ON BEDSIDE TABLE. WILL CONTINUE TO OFFER SUPPORT
--- NOTE | 2017-04-04 04:39 | NUR ---
24 HR chart check completed.
--- NOTE | 2017-04-04 05:37 | NUR ---
SLEPT WELL ALL SHIFT
--- NOTE | 2017-04-04 07:05 | NUR ---
NEEDLE ACCESS IN [facility]'Katelyn. AREA CLEANED.
[2017-04-04 07:45] LABS: PHENYTOIN (DILANTIN) 19.4 ug/ml (10-20); THYROID STIM HORMONE (HS) 2.53 uIU/ml (0.358-4.75)
[2017-04-04 08:30] VITALS: BP 192/88
[2017-04-04 08:38] LABS: VITAMIN D, 25-HYDROXY 23.1 ng/mL (30-100)
--- NOTE | 2017-04-04 09:05 | NUR ---
TREATMENT TEAM WAS HELD WITH THE FOLLOWING: DR. AMBROSE, RESIDENT, MEDICAL STUDENT, RNs, SWs. GUARDIAN IS LOOKING INTO [facility]OSSR[facility] PER DR. AMBROSE. PT HAS SERVICES IN THE HOME.
--- NOTE | 2017-04-04 10:37 | NUR ---
Erika is compliant with medications. She is noted to be somewhat anxious this morning and speech is rapid when talking with staff. She is also noted to jump from one topic to another, as well. She reports that she needs "something for pain." She states that she is experiencing both headache and adds, "I hurt all over." Medicated with Ultram 50 mg po this am per Dr. Santillan's order. Also was medicated with vistaril 50 mg po @ 1006. Dr. Santillan was in to see her today with orders received. She denies experiencing any sensory disturbances. Topic of conversation is generally focused on physical issues. B/P shows an elevation @ 192/98. Notified cell #2 Dr. Grimm and spoke with Resident Curt to inform of elevated B/P. Orders received @ this time.
--- NOTE | 2017-04-04 11:25 | NUR ---
SWS spoke with dajuan Pereyra who states that pt. has finally agreed to go to an Assisted living, [facility]. Pt. refused to go to [facility] in [place], [place]. SWS called [facility] to see if they had a bed for pt. and ezequiel at [facility] states that pt. was there a year ago and pt. had to be moved to [facility] because her needs were greater than [place]. [facility] states they cannot take her back.
--- NOTE | 2017-04-04 11:38 | NUR ---
SWS spoke with the Savannah cline who states that pt. has finally agreed to go to [place] because pt. needs more help then she is receiving from [facility]. pt son has not contacted [facility] yet and asked that SWS talk with them first. SWS spoke with Ezequiel Blankenship who asked that son jiménez call her to discuss whether or not pt. may be eligible for admission there. SWS called [place]) back and she states she will call ezequiel this afternoon on her break at work.
[2017-04-04 12:31] VITALS: BP 144/94
--- NOTE | 2017-04-04 12:48 | NUR ---
CLINICALS GIVEN TO JUDY. OVIEDO ELIAS 3 DAYS. LAST COVERED DAY 04-05-17 WITH NEXT REVIEW DUE 04-05-17.
--- NOTE | 2017-04-04 13:10 | NUR ---
Exercise/Riddles & Games Patient did not attend group this morning. Patient was in bed and when patient was encouraged to come to group,patient refused. Patient stated" I cant. Wheres the DR.? He flies in here then out if i could get him by the neck and pull him back here i would. I want him to know im getting out of here today even i go AMA. My blood pressure is so high i feel like my head is going to blow." I informed patient i would notify a nurse
--- NOTE | 2017-04-04 15:14 | NUR ---
Reminiscing and Puzzles Patient was in attendence in the very begining of group and participating. Soon after begining group Patient wanted to speak to a nurse and went out then did not come back. While in group patient showed no signs of confusion or voiced no paranoid delusions
--- NOTE | 2017-04-04 17:20 | NUR ---
ALONA MORENO LCD 04/05 WITH REVIEW
--- NOTE | 2017-04-04 17:49 | NUR ---
Mood is depressed with sporadic episodes of irritability present. Upon awakening she expressed c/o headache and back discomfort. Dr. Santillan was in to see her and did prescribe a one time dose of Ultram 50 mg po which was administered during am medication administration time. @ that time she also voiced some complaints of anxiety and voiced anger regarding medications physicians have prescribed. She was encouraged to discuss this with the physicians when they visit today. Administered vistaril 50 mg po @ 1006 am and vistaril was noted to be effective in calming her. Some circumstantiality is noted during her time spent with staff. B/P also was noted to be elevated and registered @ 192/98. Hospitalist was notified and orders were received for a one time dose of catapres 0.1 mg po @ 10:36 am. B/P rechecked in one hour and was recorded @ 144/94. During the afternoon she did attend scheduled group activity with encouragement. Noted to interact selectively, but appropriately with peers when up in the dining room. @ this time she is requesting additional pain medication. Physician was notified and orders were received. Refer to [facility] flowsheet for specific monitoring throughout this day.
--- NOTE | 2017-04-04 18:09 | NUR ---
Medicated with tylenol 325 mg po @ this time for c/o continued discomfort reporting that "I hurt all over." She rates her pain as a "10."
[2017-04-04 20:00] VITALS: BP 148/82
--- NOTE | 2017-04-05 03:11 | NUR ---
24 HOUR CHART CHECK COMPLETED.
--- NOTE | 2017-04-05 05:23 | NUR ---
PATIENT OBSERVED ON Q 15 MIN SAFETY CHECKS TO HAVE SLEPT APPROX 6 HOURS UNINTERRPTED. MOOD CONTINUES TO BE DEPRESSED THIS SHIFT WITH NOTED IRRITABILITY AT TIMES. DENIES SI/HI AND HALLUCINATIONS. NO NOTED RESPONDING TO INTERNAL STIMULI. PATIENT PREOCCUPIED WITH MEDICATIONS THIS SHIFT, STATED DURING HS MEDICATION PASS "I WANT TO KNOW RIGHT NOW WHAT MEDICATION DO I GET THAT IS POISONING MY BLOOD STREAM". PATIENT PROVIDED WITH EMOTIONAL SUPPORT WITH ADDITIONAL MEDICATION EDUCATION, ALSO REITERATED THAT PATIENT WAS SAFE AND NO ONE WAS TRYING TO POSION HER. PATIENT VERBALIZED UNDERSTANDING. PATIENT REFUSED HS DOSE OF LACTOLOSE DUE AT 2100 STATING "I ALREADY WENT TO THE BATHROOM WITH DIARRHEA A FEW TIMES TODAY, I DO NOT WANT ANYMORE FOR TONIGHT, ILL TAKE IT IN THE MORNING". COMPLAINT WITH REMAINING HS MEDICATIONS WITHOUT DIFFICULTY. NO PHYSICAL COMPLAINTS VOICED. PATIENT CURRENTLY IN BED WITH EYES CLOSED. RESPIRATIONS EASY AND REGULAR, NO SIGNS OR SYMPTOMS OF DISTRESS NOTED. REFER TO [facility] FLOWSHEET FOR SPECIFIC MONITORING.
[2017-04-05 06:10] LABS: PROLACTIN 004465 20.2 ng/mL (4.8-23.3)
[2017-04-05 07:47] VITALS: BP 190/80
--- NOTE | 2017-04-05 09:06 | NUR ---
NOTIFIED OF ELEVATED BP, PT ASYMPTOMATIC, AA&O TO SELF AND TIME.
[2017-04-05 09:07] VITALS: BP 188/96
--- NOTE | 2017-04-05 09:23 | NUR ---
TREATMENT TEAM WAS HELD WITH THE FOLLOWING: DR. ESPINOZA, SW, AT, RNs. REFERRRAL TO [facility] OTHER [facility]. [facility] DIS[facility]RAGE PENDING MONDAY OR MONDAY. PT HAS IN-HOME SERVICES.
--- NOTE | 2017-04-05 10:31 | NUR ---
ON UNIT TO ASSESS PT.
--- NOTE | 2017-04-05 11:07 | NUR ---
Exercise and remenissing group Patient attended and appropriately participated in group. Patient engaged in remenissing group with good discussion. Patient displays to be happy with no delusions.
--- NOTE | 2017-04-05 11:15 | NUR ---
Patient not available for OT evaluation this am as she was in group therapy session. OTR will attempt at a later date. Trupti Rai OTR/carin
--- NOTE | 2017-04-05 13:47 | NUR ---
PHYSICAL THERAPY PAtient evaluated on 3, full evaluation to follow. Continue with PT as per plan of care with fall and unit three precautions. PAtient was home alone with aides 7 days a week. Return to home with aides 7 x a week as prior versus assisted living- family discussing. Recommend home health RN and PT if return to home. PAtient is moderate complexity via chart review, tests and evaluation [id number]. Thank you for this referral. Bridgett Rader,PT
--- NOTE | 2017-04-05 14:35 | NUR ---
Occupational Therapy evaluation completed on 3 with full eval to follow. Precautions include fall risk, 3N, unsafe ww use, low complexity level. Recommend OT per POC and [facility] or SNF upon d/t to be determined closer to d/c. Thank you for this referral. Trupti Rai OTR/l
--- NOTE | 2017-04-05 14:56 | NUR ---
Meaningful Me Patient attended group with good participation. Patient engaged in discussion with appropriate answers. Towards then end of group patient became agigtated stating " They took my lunch tray and wont tell me what medicine is trying to kill me. What they are giving me now give me diarehha." Notified nursing of meal tray and they was sending for another. Attempted to redirect patient however patient perseverating on medication. Patient able to calm and be redirected when AC stated they will speak with the doctor about medication. Patient states " I dont know what is worse the diarehha or dying. I dont know what would make me feel better." Discussed the diarehha is a side effect and should ease up without success of patient being redirected.
--- NOTE | 2017-04-05 18:01 | NUR ---
SW RECEIVED CALL FROM [facility] REPORTING THAT PT IS ON THEIR PALLATIVE PROGRAM WHEN SHE WAS AT HOME. NO PROBLEN WITH HE RBEIG ON THE UNIT.
--- NOTE | 2017-04-05 18:01 | NUR ---
PT BECOMING INCREASINGLY ANXIOUS AND AGITATED STATING "I'M TRYING NOT TO LOSE IT". PT BECOMING AGITATED WITH PEERS BEHAVIORS. P[T REDIRECTED TO QUIET ROOM TO READ THE NEWSPAPER, INTERVENTION INEFFECTIVE. PT MEDICATED WITH VISTARIL 50MG PO PRN.
--- NOTE | 2017-04-05 18:09 | NUR ---
PT ALERT TO PERSON AND PLACE. PT MED COMPLIANT WITHOUT DIFFICUTLY, MED EDUCATION PROVIDED. PT CAN BE IRRITABLE AT TIMES. PT CALM, INTERACTING WITH STAFF AND PEERS. PT ISOLATES TO ROOM AT TIMES. PT VOICES PARANOID DELUSIONS AT TIMES THINKING THAT HER MEDICATIONS ARE POISONING HER, REALITY PRESENTED AND MED EDUACTION PROVIDED, INTERVENTION EFFECTIVE AT THIS TIME. PT DENIES ANY HOMICIDAL/SUICIDAL THOUGHTS. PT AMBUALTORY THROUGHOUT UNIT WITH WHEELED WALKER, GAIT STEADY. PT CONTINENT OF BOWEL AND BLADDER, WITH EPISODES OF INCONTINENCE NOTED, CARE PROVIDED NEEDED. PT TREATMENT PLAN TARGETS #1 COGNITIVE IMPAIRMENT R/T DELIRIUM AEB INCREASED CONFUSION, #2 AT RISK FOR FALLS. PT ON FALL PRECAUTIONS PER PROTOCOL. PLAN IS TO ENCOURAGE PT TO VOICE ANY HALLUCIANTIONS OR DELUISONS, PRESENT REALITY TO PT WITH EACH INTERACTION AND NEEDED, MONITOR PT BEHAVIOR SON Q15 MIN SAFETY CHECKS.
[2017-04-05 20:00] VITALS: BP 188/86
[2017-04-05 21:15] VITALS: BP 156/82
--- NOTE | 2017-04-05 21:15 | NUR ---
PATIENTS BP ELEVATED DURING HS VITAL CHECK WITH A MANUAL OF 188/86, PATIENT ASYMPTOMATIC. RECIEVED HS DOSE OF COREG 12.5MG WITH A MANUAL BP RECHECK OF 156/82, MEDICATION EFFECTIVE. NO PHYSICAL COMPLAINTS VOICED. NO SIGNS OR SYMPTOMS OF DISTRESS NOTED.
[2017-04-05 21:38] VITALS: BP 156/82
--- NOTE | 2017-04-06 02:29 | NUR ---
24 HOUR CHART CHECK COMPLETED.
--- NOTE | 2017-04-06 05:37 | NUR ---
PATIENT OBSERVED ON Q 15 MIN SAFETY CHECKS TO HAVE SLEPT APPROX 2 HOURS INTERRUPTED WITH MULTIPLE AWAKENINGS NOTED DUE TO ANOTHER PATIENT YELLING OUT THROUGHOUT THE NIGHT ON THE UNIT. MOOD CONTINUES TO BE DEPRESSED THIS SHIFT WITH NOTED IRRITABILITY AT TIMES. DENIES SI/HI AND HALLUCINATIONS. NO NOTED RESPONDING TO INTERNAL STIMULI.PATIIENT VOICING PARANOID DELUSIONS AT TIMES STATING THAT STAFF IS HIDING FOOD FROM HER, REALITY PRESENTED BY STAFF AND PROVIDED OPTIONS FOR HS SNACK. INTERVENTION EFFECTIVE AT THIS TIME. PATIENT REFUSED HS DOSE OF LACTOLOSE STATING "I HAVE WENT TO THE BATHROOM ALL DAY TODAY, I DONT WANT TO TAKE THAT AT NIGHT, ILL TAKE IT IN THE MORNING". PATIENT COMPLIANT WITH REMAINING HS MEDICATIONS WITHOUT DIFFICULTY. PATIENT EXPRESSED CONCERNS OF FELLOW RESIDENT STATING "IM SCARED, I DONT KNOW WHAT TO DO, HE WORRIES ME". PATIENT PROVIDED WITH EMOTIONAL SUPPORT AND REITERATED THAT SHE IS SAFE AND THAT STAFF MONITORS THE UNIT AT ALL TIMES. PATIENT VERBALIZED UNDERSTANDING. NO PHYSICAL COMPLAINTS VOICED. PATIENT CURRENTLY IN BED WITH EYES CLOSED, RESPIRATIONS EASY AND REGULAR, NO SIGNS OR SYMPTOMS OF DISTRESS NOTED. REFER TO [facility] FLOWSHEET FOR SPECIFIC MONITORING.
[2017-04-06 08:02] VITALS: BP 192/84
--- NOTE | 2017-04-06 08:07 | NUR ---
DR. MONGE NOTIFIED OF ELEVATED BP, 192/84 MANUAL WITH PULSE OF 84, PT ASYMPTOMATIC AT THIS TIME. MADE AWARE PT SCHEDULED TO RECIEVE COREG 12.5 BUT HAS REQUIRED ADDTL MEDS IN THE PREVIOUS FEW DAYS. NNO RECIEVED AT THIS TIME.
--- NOTE | 2017-04-06 08:26 | NUR ---
TREATMET TEAM WAS HELD WITH THE FOLLOWING: DR. AMBROSE, DOMO, MEDICAL STUDENT, RNs, SWs, AT. DR. AMBROSE FEELS THAT PT IS MAKING PROGRESS. PT DOES NOT WANT TO GO TO [facility]. PT WANTS TO GO BACK HOME WITH INHOME SERVICES. PENDING DISCHARGE FOR EARLY NEXT WEEK.
--- NOTE | 2017-04-06 10:04 | NUR ---
PHYSICAL THERAPY Erika seen this AM 1:1 for her therapy session, Pt was supine in bed. Erika confused today just worried the man across the velasquez was mad at her and could not get over it? Transfer supine/sit, sitting balance and just wanting to talk supervision X 1. Sit/stand standing balance MIN RETAIL MORTGAGE BANKER X 1. Pt wanting to use her bathroom at this time. Gait MIN RETAIL MORTGAGE BANKER X 1, 17' X 1, into her bathroom, no LOB. Followed by working on Pt's gait balance with gait backwards, right and left side stepping with MOD RETAIL MORTGAGE BANKER X 1, X 2, one sitting rest. Followed by gait with wheeled walker 170' X 1, CGA X 1, with cueing for gait safety, having no LOB. Pt up in the day room followed by act Ex to bilateral LE with cueing for each EX X 20 reps each of marching, LAQ's and ankle pumps, breakfast coming in at this time. KINJAL SMITH MEDICAL RADIATION DOSIMETRIST.
--- NOTE | 2017-04-06 11:38 | NUR ---
Conversation and Goals Patient did attend group as well as participated. PT is very verbal on what she wants and how she feels.Pt showed no signs of confusion but did appear to have some paranoid delusions.
--- NOTE | 2017-04-06 12:19 | NUR ---
JUAN PABLO RECEIVED CALL FROM [facility] INFORMING JUAN PABLO THAT SHE IS ON HER CASELOAD. [facility] WANTS PT TO GO TO [facility]. [facility] DO NOT HAVE ANYT OPENINGS. LELE SAID TO TRY [employer] OR [email or web address]. PT IS A HEAVY SMOKER AND [facility] WANT TO GIVE THAT UP. PT'S UNITED CM IS STANLEY Seo AND [employer]ORT [place] [facility] [phone]. BETTE SAID THAT SHE DOES NOT NEED AN ASSESSMENT PRIOR TO [facility] COMING TO SEE HER BUT [facility] SHE DID. pT REPORTING GRIEVEIN FO R THE LOSS OF HER PARENTS RECENTLY. LELE REQUESTED A CONSULT FOR COMPOTNECY WITH DR. Velásquez SO THAT [facility] CAN GO IN TO EFFECTIVE. JUAN PABLO INFORMED LELE THAT PT WANTED TO GO HOME NOT OT [facility] PER DR. AMBROSE.
--- NOTE | 2017-04-06 12:31 | NUR ---
PT IS ALERT AND ORIENTED TO PERSON, PLACE, APPROXIMATE TIME. ST/LT MEMORY DEFICITS NOTED AT TIMES. RESPIRATIONS EASY ON ROOM AIR. MOOD IS DEPRESSED, ANGRY/IRRITABLE, AFFECT IS SUSPICIOUS. SPEECH IS LOUD BUT COHERENT, ABLE TO MAKE NEEDS KNOWN WITHOUT DIFFICULTY. PT DENIES HALLUCINATIONS, NO RESPONSE TO INTERNAL STIMULI NOTED. PT DENIES SI/HI. PT EXHIBITS PARANOID DELUSIONS REGARDING MEDICATIONS, PT DID TAKE MEDICATIONS WITH ENCOURAGEMENT AND EDUCATION ON EACH MEDICATION. NICOTINE PATCH CHANGED, PT STATES "DO YOU SMOKE, IF YOU DO I'LL KNOCK YOU OUT AND STEAL YOUR CIGARETTES" PT EDUCATED AGAIN ON SMOKING POLICY OF THE UNIT AND THAT THREATENING STAFF IS INAPPROPRIATE. PT STATES "OH I'D NEVER KNOCK ANYONE OUT." PT FREQUENTLY ARGUING WITH STAFF. REDIRECTION EFFECTIVE. PT IS AMBULATORY WITH WHEELED WALKER, CONTINENT OF BOWEL AND BLADDER, ASSIST OF 1 FOR ADLS AT TIMES, DISPLAYS GOOD APPETITE WITH ADEQUATE FLUID INTAKE. NO DISTRESS NOTED. Q15 MIN SAFETY CHECKS MAINTAINED, REFER TO [facility] FLOWSHEET FOR SPECIFIC MONITORING.
--- NOTE | 2017-04-06 12:55 | NUR ---
DR. AMBROSE NOTIFIED PT HAVING MULTIPLE EPISODES OF DIARRHEA THIS MORNING. PT'S AMMONIA LEVEL ON 04/04 WAS 40 AND PT IS RECIEVING LACTULOSE 20GM BID, DR. AMBROSE STATES TO DECREASE LACTULOSE TO 10GM BID. ORDER READ BACK, REPEATED AND VERIFIED. WITNESSED BY 2ND RN LUBA.
--- NOTE | 2017-04-06 14:05 | NUR ---
VISTARIL EFFECTIVE. PT NOTABLY MORE CALM.
--- NOTE | 2017-04-06 14:53 | NUR ---
DR. GUERRIERNOTIFIED OF CONSULT FOR COMPETENCY. STATES HE CAN COME AND SEE PT TOMORROW.
--- NOTE | 2017-04-06 15:02 | NUR ---
PT C/O INCREASED ANXIETY, REDIRECTION AND 1:1 ATTEMPTED, INEFFECTIVE FOR RELIEF OF ANXIETY. PT STATES "I WANT MY KLONOPIN FOR MY NERVES BUT THEY WON'T GIVE IT TO ME. I'M GETTING REALLY AGITATED." PT WAS GIVEN PRN VISTARIL 50MG PO AT THIS TIME, WILL MONITOR FOR EFFECTIVENESS.
[2017-04-06 16:45] VITALS: BP 160/84
--- NOTE | 2017-04-06 16:47 | NUR ---
PT C/O HEADACHE PAIN RATED LEVEL 10/10 AND STATES "MY BP IS UP", BLOOD PRESSURE CHECK AT THIS TIME, MANUAL BP 160/84, HR 88, MADE AWARE PT HAS TYLENOL 325MG ONE TAB PO PRN AND COREG 12.5MG ORDERED FOR 9PM. NNO RECIEVED AT THIS TIME, DR. MONGE STATES "OK, THANK YOU."
--- NOTE | 2017-04-06 17:20 | NUR ---
PT GIVEN PRN TYLENOL 325 ONE TAB PO AT THIS TIME FOR C/O HEADACHE PAIN RATED LEVEL 10/10, WILL MONITOR FOR EFFECTIVENESS.
--- NOTE | 2017-04-06 18:15 | NUR ---
SHIFT CHART CHECK COMPLETED.
[2017-04-06 19:54] VITALS: BP 180/90
--- NOTE | 2017-04-06 19:54 | NUR ---
RESIDENT UPDATED ON PT BP OF 180/90. ALSO UPDATED ON TRENDING BP FOR LAST 3 DAYS AND NEW ORDERS RECEIVED OVER THOSE [address] STATED HE WILL LOOK AT PT'S INFORMATION IN THE COMPUTER AND DECIDE IF HE WANTS ANY NEW ORDERS. WILL MONITOR PT AND WILL RETAKE BP AFTER MEDICATION ADMISTRATION.
--- NOTE | 2017-04-06 20:20 | NUR ---
PT ANXIOUS AND COMPLAINING ABOUT OTHER PATIENTS MAKING HER MORE ANXIOUS. PRN VISTARIL GIVEN AT THIS TIME.
--- NOTE | 2017-04-06 20:30 | NUR ---
NEW ORDER RECEIVED FROM DR SAHU FOR LISINOPRIL 5 MG NOW.
--- NOTE | 2017-04-06 21:20 | NUR ---
PRN VISTARIL SEMI EFFECTIVE. PT IS NOT ANXIOUS RELAXING IN HER ROOM TALKING TO ROOM MATE.
--- NOTE | 2017-04-06 22:30 | NUR ---
DR SAHU ON UNIT AND STATED NOT TO RETAKE PT BP IF PT IS SLEEPING. DR STATED HE IS THINKING ABOUT CHANGING DAILY MEDICATION TO LISINOPRIL, ITS A BETTER MEDICATION.
--- NOTE | 2017-04-07 05:26 | NUR ---
24 HR chart check completed.
--- NOTE | 2017-04-07 05:28 | NUR ---
PT SLEPT APPROXIMATELY 8 HOURS THIS SHIFT. PT WAS MED COMPLIANT WITH MULTIPLE PROMPTS. MEDICATION EDUCATION WAS COMPLETED. PT EXPRESSED CONCERNS THAT SHE THOUGHT STAFF WERE TRYING TO POISON HER WITH HER MEDICATION. RESPIRATIONS EASY AND NON LABORED. A&O X3. PT ASKING MULTIPLE STAFF IF SHE COULD GO OUT AND SMOKE AND WAS STATING A STAFF MEMBER WAS GOING TO GIVE HER A CIGARETTE. EXPLAINED TO PT NO STAFF WAS GOING TO GIVE HER CIGARETTES AND GOING OUT TO SMOKE WAS AGAINST OUR RULES. PT DEMANDING AND INTRUSIVE. PT WILL INTERRUPT OTHERS WHILE THEY ARE TALKING TO TALK ABOUT CIGARETTES.
[2017-04-07 07:58] VITALS: BP 143/95
--- NOTE | 2017-04-07 08:10 | NUR ---
PER LIANA AT [facility], LAST COVERED DAY 04-09-17 WITH REVIEW 04-10-17.
--- NOTE | 2017-04-07 09:41 | NUR ---
ALONA FROM [facility] INFORMING THAT LCD WITH REVIEW ON 04/10.
--- NOTE | 2017-04-07 09:57 | NUR ---
TREATMENT TEAM WAS HELD WITH E FOLLOWING: DR. AMBROSE, MEDICAL STUDENT, RNs, AT, SW. DR. AMBROSE ORDERED COMPOTNECY EVAL. WITH DR. GUERRIER. DR. AMBROSE PREFERS PT TO GO TO AN ASSISTED LIVING FACILITY. IF PT IS COMPOTENT THEN PT CAN LEAVE AGAINST MEDICAL ADVICE.
--- NOTE | 2017-04-07 10:13 | NUR ---
PATIENT SEEN 1:1 45 MINUTES THIS DATE. PATIENT IDENTIFIED BY NAME AND DATE OF . PATIENT SEATED IN GROUP ROOM FINISHING BREAKFAST.PATIENT REPORTS FEARFUL OF FALLING AND APPEARED ANXIOUS AT TIMES THORUGHOUT SESSION REQUIRING REDIRECTION . PATIENT COMPLETED SIT TO STAND ARM CHAIR CGA WITH VERBAL CUES PROPER HAND PLACEMENT WITH STAND TOLERANCE ACTIVITY 2 MINUTES USE FWW SUPPORT. COMPLETED FUNCTIONAL AMBUALTION USE FWW IN HALLWAY TO ROOM CGA WITH MIN VEBRAL CUES SAFETY. PATIENT COMPLETED TOILETING CGA STANDING COMPONENTS OF TASKS WITH MIN VERBAL CUES SAFETY. PATIENT COMPLETED GROOMING STANDING AT SINK CGA WITH C/O FATIGUE AND NEED SEATED REST BREAK EOB WITH CGA WITH TRANSFER. PATIENT REQUIRED EDUCAITON PROPER USE FWW FOR FALL PREVENTION WITH PATIENT VERBALIZING THAT SHE DOES NOT ALWAYS USE WHILE IN HER ROOM. PATIENT COMPLETED FUNCTIONAL AMBUALTION IN HALLWAY USE FWW PER REQUEST WITH STAND TOLERANCE APPROX 6-7 MINUTES WITH PATIENT VERBALIZING THAT SHE ENJOYS CONVERSATION. PATIENT SEATED IN GROUP ROOM AT END OF SESSION PER PATIENT REQUEST. REBA ESCOBAR
--- NOTE | 2017-04-07 11:20 | NUR ---
PHYSICAL THERAPY Erika seen this AM 1:1 for her therapy session. Pt was up in the day room. Transfer sit/stand CG X 1. GAit with wheeld walker total 155' X 2, one sitting rest with MIN to CG X 1, no LOB. Then working on gait balance with gait backward, right and left side stepping, single leg stand with MOD FERN CUTTER X 1, X 2. End with going over act EX to bilateral LE. KINJAL SMITH SERVICE CREW LEADER.
--- NOTE | 2017-04-07 11:54 | NUR ---
MADE AWARE OF PTS REPEATEDLY ELEVATED BLOOD PRESSURES WITH NO ROUTINE MEDICATIONS. STATES WILL ENTER NEW ORDERS.
--- NOTE | 2017-04-07 12:18 | NUR ---
ON UNIT AT THIS TIME TO ASSESS PATIENT. PER , POA IS IN AFFECT. INTERVENTION COMPLETED WITH PATIENT, , THIS RN, AND SW CONCERNING DISCHARGING TO ASSISTED LIVING FACILITY. PATIENT RELUCTANTLY AGGREED AT THE END OF INTERVENTION.
--- NOTE | 2017-04-07 12:46 | NUR ---
Exercising/Reminiscing/Funny Things Patient did attend group as well as participate. Patient tends to need redirected from negativity as well as focusing on her anxiety. Patient showed no signs of confusion or paranoid delusions during group
--- NOTE | 2017-04-07 14:27 | NUR ---
ALERT AND ORIENTED WITH PERIODS OF CONFUSION AND MOOD LABILITY NOTED. ST/LT MEMORY DEFICITS NOTED DURING INTERACTIONS WITH PATIENT. NO HALLUCINATIONS OR DELUSIONS NOTED. MOOD IS IRRITABLE MOST OF THE TIME D/T CONFUSION WITH ANXIOUS OVERTONES OBSERVED. MEDICATION COMPLIANT WITHOUT DIFFICULTY. DENIES ANY SI/HI, PLAN, OR INTENT. Q15 MIN OBSERVATION CHECKS PER ORDERS. CONTINUE TO REORIENT AND REDIRECT T/O THE SHIFT AND NEEDED. SEE [facility] FLOWSHEET FOR SPECIFIC MONITORING.
[2017-04-07 14:56] LABS: HEMATOCRIT 34.7 % (37.0-47.0); HEMOGLOBIN 11.1 g/dl (12.0-16.0); MEAN CELL VOLUME 87.2 fl (81.0-99.0); MEAN CORPUSCULAR HGB 27.9 pg (27.0-31.0); MEAN PLATELET VOLUME 11.8 fl (9.6-12.3); PLATELET COUNT AUTOMATED 166 10*3/uL (130-400); RED BLOOD COUNT 3.98 10*6/uL (4.10-5.10); RED CELL DISTRI WIDTH 17.2 % (0-14.5); WHITE BLOOD COUNT 9.1 10*3/uL (4.8-10.8)
[2017-04-07 15:16] LABS: ALBUMIN 3.3 gm/dl (3.1-4.5); ALKALINE PHOSPHATASE 95 U/L (45-117); BUN 18 mg/dl (7-24); CHLORIDE 107 mmol/L (98-107); POTASSIUM 3.9 mmol/L (3.5-5.1); SGOT/AST 12 IU/L (3-35); SGPT/ALT 17 U/L (12-78); SODIUM 137 mmol/L (136-145); TOTAL PROTEIN 7.5 gm/dL (6.4-8.2)
--- NOTE | 2017-04-07 15:35 | NUR ---
SHAWN Patient was in attendence for group as well as participated. Patient was somewhat withdrawn,not speaking out as much as she usually does. Patient showed no signs of confusion or any paranoid delusions while in group
[2017-04-07 15:42] LABS: PLATELET SUFFICIENCY NORMAL (NORMAL); TOTAL CELLS COUNTED 100 #CELLS
[2017-04-07 15:43] LABS: BURR CELLS FEW
[2017-04-07 20:39] VITALS: BP 142/82
--- NOTE | 2017-04-07 22:00 | NUR ---
PT YELLING AT STAFF, STATING SHE IS ANXIOUS AND "SOMETHING HAS TO BE DONE WITH YOLIS, WHY CANT THEY LOCK HIM UP. I CANT SLEEP I WILL BE TALKING TO ADMINISTRATION IUN THE MORNING I WANT TO SIGN OUT AMA!". MED EDUCATION PROVIDED WITH PATIENT REGARDING NEW REMERON ADDED THIS EVENING PT STATED " I STILL WANT MY VISTARIL". PRN VISTARIL ADMINISTERED.
--- NOTE | 2017-04-07 22:45 | NUR ---
PT SLEEPING SOUNDLY IN BED AT THIS TIME PRN VISTARIL EFFECTIVE
--- NOTE | 2017-04-08 04:43 | NUR ---
24 HR chart check completed.
--- NOTE | 2017-04-08 05:54 | NUR ---
PT CONITNUES TO EXHIBIT ANXIETY AND MOOD LABILITY. FIXATED ON LEAVING DUE TO PEER. MED EDUCATION PROVIDED REGARDING NEW REMERON. PT CONTINUES TO HAVE HIGH ANXIETY AND DIFFICULITY COMPHRENDING MED EDUCATION, 1-1 PROVIDED AND COPING SKILLS DISCUSSED WITH PT. FALL PRECAUTIONS MAINTAINED Q 15 MIN CHECKS MAINTAINED FOR SAFETY. PT SLEPT 8 HOURS WITH OUT INTURRUPTION.
[2017-04-08 08:31] VITALS: BP 156/81
--- NOTE | 2017-04-08 11:28 | NUR ---
Goals, remenissing and would you rather Patient attended group with appropriate behavior at times. Patient over talked peers, interjected own thoughts, talked poorly of peers in group and displayed increased frusteration and anger. Patient not easily redirected to others thoughts and feelings. Patient upset over peer erasing activity board " thats thoughtless. I know what hes like on the outside and its no different in here. I dont like him and I would hit him if I could." Attempted to redirect with little success. Patient attempts to make group about themself with little regard to others thoughts and feelings. Patient states " I cant control my temper. Thats who I am. Everyone knows my last name comes with a temper." Encouraged patient to state coping skills and positive things about self however not successful. Patient returns to talking poorly about peers.
--- NOTE | 2017-04-08 16:55 | NUR ---
ALERT AND ORIENTED X3, POOR INSIGHT TO SIUTATION, ORGANIZED IN CONVERSATION, IRRITABLE, ANXIOUS, GLENDA SI/HI, GLENDA ALL PSYCHOSIS, DEMANDING TO LEAVE, GOOD APPETITE, HAS BEEN CONTIENENT, UP AMBULATORY WITH A WALKER, C/O HEADACHE, RECEIVED BYLENOL AT 0917 WHICH WAS EFFECTIVE, 1233 RECIVED VISTARIL FOR INCREASED ANXIETY. PT IS MED SEEKING, DEMANDING,
[2017-04-08 20:00] VITALS: BP 140/90
--- NOTE | 2017-04-09 05:40 | NUR ---
24 HR chart check completed.
--- NOTE | 2017-04-09 06:58 | NUR ---
PT CONITNUES MOOD LABILITY, DEMANDING AND INTURUSIVE WITH ALL ASPECTS OF CARE AND CARE OF PEERS. PT VERY UPSET THAT NURSING STAFF "IS BEING WASTEFULL AND WANTS TO SIGN OUT AMA". NURSING STAFF THREW AWAY STALE CRACKERS. MED COMPLIANT, MED EDUCATION PROVIDED. Q15 MIN CHECKS FOR SAFETY MAINTAINED FOR SAFETY. CONINTUE LIMIT SETTING, 1-1. CONTINUE POC SLEPT 7 HOURS WITH OUT INTURRUTPION.
[2017-04-09 07:41] VITALS: BP 134/86
--- NOTE | 2017-04-09 14:29 | NUR ---
DENIES SI/HI, DENIES ALL PSYCHOSIS, INCONTROL, PARTICIAPTES , ENGAGES IN CONVERSATION, MED COMPLIANT, TAKES PILLS WHOLE, SOCIAL WITH STAFF AND PEERS, MAKES HER NEEDS KNOWN,
--- NOTE | 2017-04-09 19:53 | NUR ---
24 HR chart check completed.
[2017-04-09 20:14] VITALS: BP 152/89
--- NOTE | 2017-04-09 22:07 | NUR ---
PT A&O X3. Q15 MINUTE SAFETY CHECKS MAINTAINED AND SEIZURE PRECAUTIONS MAINTAINED. PT IS LABILE AT TIME AND ANXIOUS. PT UPSET OVER SNACK AND REFUSING TO EAT IT DUE TO IT NOT BEING A SANDWICH. PT IS CONFUSED BUT ORGANIZED IN HER THOUGHTS AT TIMES. NO HALLUCINATIONS OR DELUSIONS NOTED. PT INTERACTIVE WITH PEERS AND STAFF. CAN BE INTRUSIVE AND DISRUPTIVE AT TIMES. DEMANDING TO GET WHAT SHE WANTS WHEN SHE WANTS IT WITH NO REGARDS TO PATIENT CARE OF OTHER PEERS. WHEN PT DOES NOT GET WHAT SHE WANTS WHEN SHE WANTS IT SHE BECOMES AGITATED AND THROWING HER ARMS AROUND IN THE AIR AND SMACKING THE TABLE. MEDICATION COMPLIANT WITHOUT DIFFICULTY. Q15 MINUTE SAFETY CHECKS MAINTAINED. RESPIRATIONS EASY AND NON LABORED. NO S/S OF DISTRESS NOTED. NO C/O PAIN. SEE [facility] FLOWSHEET FOR SPECIFIC MONITORING. MEDICATION EDUCATION PROVIDED. PT CONTINUES TO ASK FOR A CIGARETTE. PT TOOK MEDICATION AND STATED "OK I TOOK MY PILLS CAN I HAV A CIGARETTE NOW." PT EXPRESSED SHE WOULD GO OUTSIDE TO SMOKE AND PT WAS REEDUCATED ON UNIT RULES AND NOT BEING ALLOWED TO LEAVE THE FLOOR TO SMOKE.
--- NOTE | 2017-04-10 06:38 | NUR ---
PT SLEPT APPROXIMATELY 7 HOURS THIS SHIFT. NO S/S OF DISTRESS. NO C/O PAIN. PT ASKING FOR VISTARIL AT THIS TIME. EXPLAINED TO PT SHE GETS ONE AT 0900. NO S/S OF ANXIETY NOTED. PT SITTING IN DINNINGROOM DRINKING COFFEE AND WATCHING TV.
[2017-04-10 08:15] VITALS: BP 134/74
--- NOTE | 2017-04-10 08:18 | NUR ---
TREATMENT TEAM WAS HELD WITH THE FOLLOWING: DR. AMBROSE, RNs, AT, SWs. DR. GUERRIER SAID PT INCOMPOTENT AND TO FOLLOW [facility] DECISIONS. [facility] WAS LOOKING INTO ASSISTED LIVING FACILITIES.
--- NOTE | 2017-04-10 09:10 | NUR ---
PHYSICAL THERAPY Erika up in the day room this AM therapy visit. To start off with Pt very up-set about a male Pt coming in her room last night. Transfer sit/stand, standing balance with wheeled walker CGA X 1, no LOB. Gait total 135' X 2, with W/W and MIN A X 1, one sitting rest with this due to Erika silva very up-set about a man coming into her room last night. We did get to work in gait balance with gait backwards, right and left side stepping, and single leg stand at the window. Pt back in the day room for her breakfast and just up-set this morning and Dr Santillan knows. KINJAL SMITH CNC MANAGER.
--- NOTE | 2017-04-10 09:23 | NUR ---
ON UNIT TO ASSESS PT.
--- NOTE | 2017-04-10 12:45 | NUR ---
Goals/Exercise/I am greatful for... Patient did attend group this morning as well as participated. Patient needed redirected back to group subject x3. During group patient showed no signs of confusion or expressed any paranoid delusions
--- NOTE | 2017-04-10 13:18 | NUR ---
PATIENT SEEN 1:1 IN AM. PATIENT IDENTIFIED BY NAME AND DATE OF . PATIENT APPEARED ANXIOUS THIS DATE AND VERBALIZING THAT SHE WANTED HER JEANS REPEATEDLY. PATIENT REPORTS THAT SHE WAS WAIITNG TO GET A SHOWER .PATIENT COMPLETED GROOMING TASK STANDING AT SINK SUPERVISION AND VERBAL CUES TO INITIATE. PATIENT DEMONSTRATED GOOD STANDING TOLERANCE DURING ADL TASK THIS DATE AND NO LOSS BALANCE. REBA ESCOBAR
--- NOTE | 2017-04-10 14:59 | NUR ---
Rec'd message from Telemetry Registered Nurse IESHA Rubio, called and wants a return call. Called and left vm and cell phone number.
--- NOTE | 2017-04-10 15:39 | NUR ---
Jeopardy coping skills, anger management and therapy/feeling group Patient declined to attend group due to not feeling well. Discussed being able to sit in other room and attend group however patient continues to delcine to attend.
--- NOTE | 2017-04-10 17:07 | NUR ---
PT ALERT TO PERSON,PLACE AND TIME. PT MED COMPLIANT WITHOUT DIFFICULTY, MED EDUCATION PROVIDED. PT ANXIOUS. PT FOCUSED ON DISCHARGE, BECOMING ANGRY/IRRITABLE AT TIMES, ASKING TO BE DISCHARGED TODAY STATING "LET ME OUT OF HERE, SO I CAN GO TO MY REAL DR., ." ADVISED PT THAT SHE IS HERE VOLUNTARY BY HER POA AND HAS NOT DISCHARGED HER YET. NO FURTHER ISSUES AT THIS TIME. PT OBSERVED TO HAVE SHORT TERM MEMORY DEFICITS. PT CALM, INTERACTING WITH STAFF AND PEERS AT TIMES. PT CAN BE INTRUSIVE AND DISRUPTIVE TO OTHERS. NO HALLUCINATIONS OR DELUSIONS NOTED. PT DENIES ANY HOMICIDAL/SUICIDAL THOUGHTS. PT AMBULATORY WITH WHEELED WALKER, GAIT STEADY. PT CONTINENT OF BOWEL AND BLADDER, EPISODES OF INCONTINENCE NOTED, CARE PROVIDED NEEDED. PT TREATMENT PLAN TARGETS #! COGNITIVE IMPAIRMENT R/T DELIRIUM AEB CONFUSION AND #2 AT RISK FOR FALLS. PT PLACED ON FALL PROTOCOL PER POLICY. PLAN IS TO ENCOURAGE PT TO VOICE ANY HALLUCINATIONS OR DELUSIONS, PRESENT REALTIY TO PT WITH EACH INTERACTION AND NEEDED.
[2017-04-10 19:59] VITALS: BP 132/78
--- NOTE | 2017-04-10 21:03 | NUR ---
TYLENOL GIVEN FOR C/O 03/14 HEADACHE. STATES SHE HAD A HORRIBLE DAY. THEN STARTED ON RAMBLING PRESSURED SPEECH RELATING TO THE PAST AND HOW [facility] IS DYING. DISCUSSED BUSINESSES THAT CLOSED. THEN SAID HER AUNT GAVE MILLIONS AND THOUSANDS OF DOLLARS TO THE HOSPITAL AND THE [place] ARE NOT GOING TO VOTE THIS HOSPITAL AND TAXES YOU KNOW." CONTINUES TO HAVE FLIGHT OF IDEAS ON EVERY SUBJECT FROM HORSES TO CHURCHES TO NOT HAVING MET HER AUNT. ELIZABETHY WHEN TALKING ABOUT THE OLD ANA THAT USED TO BE IN [place] AND IS NOW SOMEWHERE IN [place]. DID ADMIT THAT TALKING HELPS HER ALITTLE BIT. DISCUSSED HOW SHE MET HER [facility] [employer] BY THE UPPER PEOPLE THERE. MULTIPLE DISCUSSIONS OF OTHERS BAD LUCK IN [place].
--- NOTE | 2017-04-10 21:54 | NUR ---
LAYING QUIET IN BED. APPEARS TYLENOL EFFECTIVE
--- NOTE | 2017-04-11 01:41 | NUR ---
PATIENT TREATMENT PLAN TARGETS: 1- COGNITIVE IMPAIREMENT R/T DELIRIUM 2- DEPRESSION R/T UNRESOLVED DISTRESS OVER DAUGHTERS PASSING A FEW YEARS AGO 3- FALL RISK R/T MEDICATIONS INTERVENTION- 1-CONTINUE REORIENTATION TO CURRENT EVENTS IN HER LIFE 2- ALLOW CLIENT TO VERBALIZE FEELINGS OF LOSS 3- MONITOR GAIT PLAN 1-IMPROVED COGNATIVE STATUS 2- ABLE TO VERBALIZE PAIN AND LOSS 3- NO FALLS
--- NOTE | 2017-04-11 05:34 | NUR ---
24 HR chart check completed.
--- NOTE | 2017-04-11 05:34 | NUR ---
SLEPT WELL PASSED 2200PM
[2017-04-11 08:22] VITALS: BP 151/85
--- NOTE | 2017-04-11 09:44 | NUR ---
PATIENT SEEN 1:1 OT 25 MINUTES THIS DATE. PATIENT IDENTIFIED BY NAME AND DATE OF THIS DATE. PATIENT IN DAY ROOM THIS DATE. PATIENT EDUCATED PROPER FOOT WEAR THIS DATE SECONDARY PATIENT WEARING SOCKS. PATIENT REPORTS THAT HER TOE WAS SORE TODAY AND DID NOT WANT TO WEAR SHOES. PATIENT DONNED NONSLIP SOCKS SBA AFTER [place] SEATED ARM CHAIR THIS DATE VERBALIZING UNDERSTANDING FOR FALL PREVENTION. PATIENT COMPLETED FUNCTIONAL TRANSFERS SBA IN HALLWAY AND VARIOUS SIT TO STANDS FROM BED AND ARM CHAIR SBA. PATIENT COMPLETED FUNCTIONAL STANDING TASK APPROX 8-9 MINUTUES WITHOUT AD PREPARED BED AND FOLDED CLOTHES SBA NO LOSS BALANCE. PATIENT APPEARED ANXIOUS AT TIMES WITH REDIRECTION REQUIRED TO MAINTAIN ATTENTION TO TASK. PATIENT ATTENDED GROUP AFTER SESSION THIS . REBA BRUNER/Jeff
--- NOTE | 2017-04-11 10:02 | NUR ---
PHYSICAL THERAPY Erika seen this AM 1:1 for her therapy session and not as up-set this AM visit. All transfers were supervision x 1, no LOB. Gait with wheeled walker and CG X 1, 150' X 1, sitting rest. Followed by gait with CGA X 1, 150' X 1, no walker, cueing for gait safety. Working in gait balance with single leg stand, gait backwards, right and left side stepping, and 360 slow turn MIN BILINGUAL RECRUITER X 1. Pt back up in the day room for her breakfast. KINJAL SMITH AUTO PARTS CLERK.
--- NOTE | 2017-04-11 10:47 | NUR ---
PER LIANA AT [facility], STAY ELIAS THROUGH 04/12/17 WITH NEXT REVIEW TOMORROW 04/12/17.
--- NOTE | 2017-04-11 10:56 | NUR ---
SW RECEIVED CALL FROM [facility] INFORMING THAT LCD IS 04/12 WITH REVIEW THAT DAY.INSURANCE WOULD LIKE PT DISCAHRGE ON MONDAY.
--- NOTE | 2017-04-11 11:07 | NUR ---
Exercise and self esteem group Patient attended group with fair participation. Patient requires frequent redirection to group and topic disuccsions. Patient perseverating on not understanding what group is about, how to help grandkids and being a "doormat." Patient encouraged to focus on postive self thoughts and getting better before trying to help others. Surround yourself with postive people who will lift you up not pull you down. Patient easily agitated with group activities and only half filled out " A letter to me" and declined to share it with group.
--- NOTE | 2017-04-11 11:50 | NUR ---
PATIENT IS ALERT WITH ACUTE CONFUSION OBERSVED THIS MORNING. PATIENT STATING "DON'T GIVE ME THOSE PILLS UNLESS THEY SAY HECTOR ON THEM BECAUSE THAT'S MY NAME NOW." SPEECH IS PRESSURED AND TANGENTIAL. PATIENT ONLY BECAME MORE IRRITABLE AND ANGRY WHEN RE-ORIENTED. NO HALLUCINATIONS NOTED. MEDICATION COMPLIANT WITHOUT DIFFICULTY WITH THE EXCEPTION OF HER LACUTLOSE. INTERACTING WITH PEERS DURING GROUP THERAPY. DENIES ANY SI/HI. APPETITE GOOD FOR BREAKFAST. WILL CONTINUE TO REDIRECT AND ORIENT PATIENT NEEDED. Q15 MIN OBSERVATION CHECKS PER ORDERS.
--- NOTE | 2017-04-11 14:01 | NUR ---
Crew Scheduler Note: faxed referral packets to [facility] and to [facility] today.
--- NOTE | 2017-04-11 14:20 | NUR ---
PRN TYLENOL GIVEN FOR "ALL OVER" PAIN, REFUSED TO SCALE. EFFECTIVE PER PT.
--- NOTE | 2017-04-11 15:25 | NUR ---
Social ESCOBAR Patient did attend group as well as participated.Patient appeared very anxious throughout group. Patient needed redirected back to topic several times,tends to want to dominate group/conversation. Patient showed no signs of confusion or paranoid delusions while in group
--- NOTE | 2017-04-11 18:36 | NUR ---
TREATMENT TEAM WAS HELD THIS MORNING WITH THE FOLLOWING: DR. AMBROSE, MEDICAL STUDENT, RNs, ATs, SW. DR. AMBROSE FEELS THAT PT NEEDS SUPERVISED AND IF CAN NOT GET INTO AL THEN [facility] WOULD BE BEST.
--- NOTE | 2017-04-11 18:49 | NUR ---
PRN TYLENOL GIVEN AT THIS TIME PER PT REQUEST FOR "ALL OVER" PAIN UNRELIEVED WITH REPOSITIONING. PT REFUSED TO SCALE PAIN. PRN VISTARIL GIVEN AT THIS TIME FOR SYMPTOMS OF INCREASED AGITATION AND ANXIETY UNRELIEVED WITH CALMING TECHNIQUES AND DISTRACTIONS. WILL MONITOR FOR EFFECTIVENESS OF BOTH.
--- NOTE | 2017-04-11 19:06 | NUR ---
SW SPOKE WITH APS LELE DAVENPORT INFORM THAT PASRR WAS COMPLETED AND REFERRALS MADE TO [facility] FOR 30 DAY REHAB STAY SO THAT PT CAN BE ASSWESSED FOR ASSISTED LIVING FACILITY. LELE FEELS THAT DUE TO PT BEING A HEAVY SMOKER THAT [facility] WILL NOT TAKE PT.
[2017-04-11 19:47] VITALS: BP 157/85
--- NOTE | 2017-04-12 04:05 | NUR ---
24 HOUR CHART CHECK COMPLETED.
--- NOTE | 2017-04-12 05:21 | NUR ---
PATIENT OBSERVED ON Q 15 MIN SAFETY CHECKS TO HAVE SLEPT >7 HOURS WITH NO AWAKENINGS. MOOD DEPRESSED THIS SHIFT WITH IRRITABILITY NOTED AT TIMES. DENIES SI/HI AND HALLUCINATIONS.NO NOTED RESPONDING TO INTERNAL STIMULI. STAFF SPLITTING WITH PARANOID DELUSIONS OBSERVED DURING 1:1 WITH PATIENT, PATIENT STATED "STAFF WAS MAD AT ME TODAY BECAUSE I WANTED WATER INSTEAD OF COKE, I DIDNT WANT COKE, THEY WAS TRYING TO SAY I WAS RUDE CAUSE I DIDNT WANT COKE". REALITY PRESENTED WITH EMOTIONAL SUPPORT PROVIDED. INTERVENTION EFFECTIVE AT THIS TIME. PATIENT MEDICATION COMPLIANT WITH MEDICINES AFTER REVIEW. NO PHYSICAL COMPLAINTS VOICED. PATIENT CURRENTLY IN BED WITH EYES CLOSED. RESPIRATIONS EASY AND REGULAR. NO SIGNS OR SYMPTOMS OF DISTRESS NOTED.
[2017-04-12 07:42] VITALS: BP 149/85
--- NOTE | 2017-04-12 09:11 | NUR ---
OCCUPATIONAL THERAPY CO-SIGN I approve of the Occupational Therapy notes written above. ORLANDO GUPTA OTR/Jeff
--- NOTE | 2017-04-12 11:07 | NUR ---
Spoke with Jacqueline at [facility]. Jacqueline is checking with the DON about the referral and will be calling SW back.
--- NOTE | 2017-04-12 11:08 | NUR ---
Spoke with Michaela from [facility] who states that they are "going to pass" on this pt.
--- NOTE | 2017-04-12 11:15 | NUR ---
Goals, exercise and trivia Patient attended group and participated appropriately. Patient followed along with group activies with little redirection. Patient answered questions appropriately and waited for others to answer.
--- NOTE | 2017-04-12 11:17 | NUR ---
PHYSICAL THERAPY Erika seen this AM and coming out of her room with wheeled walker independent. I ask if i might gait her and she said not. Stopped back and Erika was in the day room said that she is not going to walk with therapy today i can do it myself. KINJAL SMITH FIG WASHER.
--- NOTE | 2017-04-12 11:58 | NUR ---
Referrals sent out to: [facility], [facility], [facility], [facility]. At this point in time, attempting to locate bed for a 30 day rehab stay and possibly AL placement if [employer] services approves, after rehab.
--- NOTE | 2017-04-12 12:13 | NUR ---
SW sent passsport referral to assess pt. for AL once pt. completes 30 day rehab stay in [place].
--- NOTE | 2017-04-12 13:48 | NUR ---
Erika requested and was medicated with tylenol 325 mg po (one tab) @ this time for c/o headache which she rates as a "10" on the pain scale.
--- NOTE | 2017-04-12 13:57 | NUR ---
JUAN PABLO left for pt. yard manager, Jaydawilian Godfreyry at to fax updated info. to her on hospital stay and see how soon pt. will be assesed for AL. d/c plan is for pt. to be admitted for a 30 day rehab stay then possibly to AL vs. returning to her own apt.
--- NOTE | 2017-04-12 14:37 | NUR ---
PT ALERT TO PERSON, PLACE AND TIME. PT REFUSED AM DOSE OF LACTULOSE AND EXELON PATCH. PT ANXIOUS AT TIMES. PT PREOCCUPIED WITH OTHER PTS AND THEIR PROBLEMS. PT APPROACHED THIS NURSE STATING "I AM CONCERNED ABOUT MY FRIEND HERE, PLEASE TELL ME WHAT SHOCK TREATMENTS ARE AND WHY IS SHE GOING TO GET THEM." ADVISED PT THAT WE ARE NOT GOING TO SPEAK ABOUT OTHER PT PROBLEMS AND THEIR TREATMENTS. NO HALLUCIANTIONS OR DELUSIONS NOTED. PT DENIES ANY HOMICIDAL/SUICIDAL THOUGHTS. PT CALM, PARTICIPATING IN GROUPS AND ACTIVITIES. PT INTRUSIVE TO PEERS AND STAFF. PT AMBULATES WITH WHEELED WALKER. PT CONTINENT OF BOWEL AND BLADDER. PT TREATMENT PLAN TARGETS COGNITIVE IMPAIRMENT AND RISK FOR FALLS. PT PLACED ON FALL PROTOCOL PER POLICY. PLAN IS TO ENCOURGAE PT TO VOICE ANY HALLUCINATIONS OR DELUSIONS, PRESENT REALITY WITH EACH INTERACTION AND NEEDED.
--- NOTE | 2017-04-12 15:00 | NUR ---
EDIN FROM [facility] CALLED RE:REFERRAL FOR PLACEMENT, INFORMATION GIVEN. PER EDIN SHE WILL BE HERE WITHIN THE HOUR TO ASSESS PT.
--- NOTE | 2017-04-12 15:06 | NUR ---
SHERWIN spoke with ortiz from [facility] who states pt. can be accepted, no pre-cert. needed. Dinah from [facility] will be here today to assess and let Sherwin know if pt. can be accepted. pt. to be d/c'ed tomorrow to facility with an open bed and poa approval.
--- NOTE | 2017-04-12 15:22 | NUR ---
Positive Traits:I am a Star.... Patient did attend group with a limited participation. Patient stated she couldnt do group due to a headache but then participated sparingly. Patient needed redirected back to subject,asked not to interupt others and asked not to speak negatively several times. Patient would put a limit on her positive traits such as "I am a loving person only if that person is loving back to me" or "I am a caring person only if that person is caring back to me." Patients negativity is upsetting to other patients
--- NOTE | 2017-04-12 16:14 | NUR ---
CARLOS FROM [facility] HERE TO ASSESS PT.
--- NOTE | 2017-04-12 16:14 | NUR ---
EDIN FROM [facility] HERE TO ASSESS PT.
--- NOTE | 2017-04-12 16:19 | NUR ---
Pasrr completed. will await for pasrr results before pt. can be d/c'ed. pt. has been accepted at [facility] and zullinger here to assess.
--- NOTE | 2017-04-12 16:25 | NUR ---
left message for ortiz at [facility] that pt. pasrr will need to be approved before pt. can be d/c'ed. will let ortiz know if pt. will be admitted there.
--- NOTE | 2017-04-12 18:49 | NUR ---
PASRR HERE TO ASSESS PT.
[2017-04-12 19:43] VITALS: BP 146/80
--- NOTE | 2017-04-12 20:10 | NUR ---
REMOVED FROM DININGROOM FOR DISRUPTIVE AND INTRUSIVE BEHAVIOR WITH PEER. UNABLE TO REDIRECT TO HER ROLE A PATIENT NOT STAFF. WALKED WITH HER WALKER AND WATER TO HER ROOM
--- NOTE | 2017-04-12 20:50 | NUR ---
TRIED TO DISCUSS EARLIER EVENTS IN THE DININGROOM. CONTINUES TO ARGUE THAT SHE WAS RIGHT TO CONFRONT PEER INSTEAD OF INFORMING STAFF. CONTINUED TO ACCUSE PEER OF THINGS THAT WERE NOT DONE. UNABLE TO REDIRECT. WILL MONITOR
--- NOTE | 2017-04-13 01:05 | NUR ---
PATIENT TREATMENT PLAN TARGETS: P-1- MAJOR DEPRESSION I- TEACH NEW COPING SKILLS, ORIENT TO PLACE AND TIME, MEDICATION COMPLIANCE, BOUNDRIES P- MEDICATION COMPLIANCE, BE AWARE OF BOUNDRIES, USE COPING SKILLS TO DEAL WITH PROBLEMS. CONTINUING TO WORK WITH BOUNDRIES, AND GRANDIOUS ACTIONS
--- NOTE | 2017-04-13 05:01 | NUR ---
24 HR chart check completed.
--- NOTE | 2017-04-13 06:16 | NUR ---
PER LIANA AT [facility]- 1 MORE DAY ELIAS. STATES PT APPEARS AT BASELINE. LAST COVERED DAY 04-13-17. NEXT REVIEW 04-13-17.
--- NOTE | 2017-04-13 06:20 | NUR ---
SLEPT WELL PAST [id number]
--- NOTE | 2017-04-13 07:08 | NUR ---
Eduard here last night to assess pt. will d/c to [facility] as soon as Pasrr back per poa.
[2017-04-13 07:57] VITALS: BP 142/82
--- NOTE | 2017-04-13 08:10 | NUR ---
Dinah from [facility] called and ask if pt. smoker, SW let her know yes and Dinah states they are a non-smoking facility, so pt. cannot be admitted there.
--- NOTE | 2017-04-13 08:20 | NUR ---
PHYSICAL THERAPY Erika seen for her therapy session, Pt did gait with wheeled walker from her room up to the day room independent. Erika not wanting anything to do with her therapy and said no did not want any today. KINJAL SMITH EXECUTIVE SECRETARY SOCIAL WELFARE.
--- NOTE | 2017-04-13 08:22 | NUR ---
Updated IESHA Rubio, in regards to d/c plan for [facility] for a 30 day Rehab and the poa. poa in agreement and would like a phone call jerman graff. is d/c'ed.
--- NOTE | 2017-04-13 10:17 | NUR ---
Rec'd adelina from [facility], they are not able to accept pt. at this time.
--- NOTE | 2017-04-13 12:46 | NUR ---
JUAN PABLO rec'd vm from [facility] from [facility] [employer] Jayda states that her fax number is and requested that updated info be sent to her and she will forward to CM at [facility], and she was also inquiring about d/c date. JUAN PABLO called back and left vm that pt. tentative d/c today or tomorrow pending pasrr. JUAN PABLO faxed update dinfo. to Jayda.
--- NOTE | 2017-04-13 12:50 | NUR ---
Bentley spoke with pt. pt. adimant that she wants to go home. pt. was deemed "incompetent" and poa has decision-making power at this time. pt. does seem to understand that she may go home after a 30 day rehab, but she wants to go directly home. awaiting [facility] for d/c to [facility].
--- NOTE | 2017-04-13 12:51 | NUR ---
PHYSICAL THERAPY For what ever reason Erika doing much better thie PM. All transfers were supervision X 1, no LOB. Gait with wheeled walker 190' X 2, supervision X 1, no LOB. THen working on gait balance with single leg stand, gait backwards, right and left side stepping and 360 turn with MIN BOOK TRIMMER X 1, X 2. Pt taken back up to the day room having no complaints. KINJAL SMITH MASK DESIGNER.
--- NOTE | 2017-04-13 13:06 | NUR ---
Goals,Exercise and Trivia Patient was in attendence as well as participated. Patient redirected back to topics several times. Patient also negative about things,goal today is to work on being positive. Patient needs reminded of this goal throughout group. Patient showed no signs of confusion or paranoid delusions while in group
--- NOTE | 2017-04-13 13:37 | NUR ---
PT ALERT TO PERSON AND PLACE. PT REFUSED AM DOSE OF LACTULOSE AND EXELON PATCH, MED EDUCATION PROVIDED, EDUCATION INEFFECTIVE. PT IS ANGRY/IRRITABLE AT TIMES. PT ARGUMENTATIVE WITH STAFF, REGARDING USE OF WALKER. PT INTRUSIVE OF OTHERS, ASKING ABOUT OTHERS TREATMENT AND DISCHARGE PLANS. NO HALLUCIANTIONS OR DELUSIONS NOTED. PT DENIES ANY HOMICIDAL/SUICIDAL THOUGHTS. PT AMBULATES WITH WHEELED WALKER, PT REQUIRES MULTIPLE REMINDERS TO USE WALKER. PT STATES "THE DR TOLD ME THAT I DIDN'T HAVE TO USE MY WALKER, YOU NURSES TELL ME I HAVE TO." ADVISED PT THAT SHE DOES NEED TO CONTIUE TO USE TO HER WALKER, THAT SHE IS UNSTEADY WITHOUT IT. PT STATES "I JUST DON'T KNOW WHY HE TELLS ME ONE THING AND YOU GUYS TELL ME SOMETHING ELSE." ADVISED PT THAT SHE IS WORKING WITH PT AND THEY WILL ADVISE US IF SHE IS ABLE TO GO WITHOUT USING HER WALKER. PT CONTINENT OF BOWEL AND BLADDER. TREATMENT PLAN TARGETS #1COGNITIVE IMPAIRMENT, AND RISK FOR FALLS. PT PLACED ON FALLS PROTOCOL PER POLICY. PLAN IS TO ENCOURAGE PT TO VOICE ANY HALLUCINATIONS, PRESENT REALITY WITH EACH INTERACTION AND NEEDED.
--- NOTE | 2017-04-13 14:28 | NUR ---
PT C/O HEADACHE 01/12. PT MEDICATED WITH TYLENOL 325 MG. PT STATING "THE DR SAID HE WOULD GIVE ME MORE TYLENOL WHY DIDN'T HE?" ADVISED PT THAT DID NOT INCREASE HER DOSE OF TYLENOL, PT STATING "WELL I WANT TO CALL MY POA" ADVISED PT THAT GROUP IS IN PROCESS AND WE DO NOT MAKE CALLS DURING GROUP. PT STATED "THAT'S OK, HE'S NOT MY DR I DON'T WANT HIM, I DON'T WANT MY POA ANYMORE, I HAD IT OVERTURNED." ADVISED PT THAT WHILE SHE IS HERE, DR. AMBROSE IS HER DOCTOR AND IF SHE WISHES TO HAVE HER POA OVERTURNED SHE WILL HAVE TO PETITION THE COURT. PT SITTING IN THE QUIET ROOM TO REST.
--- NOTE | 2017-04-13 15:05 | NUR ---
JUAN PABLO called [facility] to check on status of the pasrr. Tiffany states that assesssor has not submitted info. yet to the state. Will call in am to check on status.
[2017-04-13 20:19] VITALS: BP 151/75
--- NOTE | 2017-04-14 01:12 | NUR ---
PT A&O X3. FALL AND Q15 MNUTE SAFETY CHECKS MAINTAINED. MOOD TRENDING TOWARDS STABLE. NO ANGRY OUTBURSTS/IRRITABILITY NOTED THIS SHIFT. NO HALLUCINATIONS OR DELUSIONS NOTED. INTERACTIVE WITH PEERS AND STAFF. PT RETIRED TO BED AFTER MEDICATION ADMINISTRATION. MEDICATION EDUCATION PROVIDED. MED COMPLIANT WITHOUT DIFFICULTY. RESPIRATIONS EASY AND NON LABORED. NO COMPLAINTS OF A HEADACHE. NO SI/HI NOTED. SEE [facility] FLOWSHEET FOR SPECIFIC MONITORING.
--- NOTE | 2017-04-14 03:02 | NUR ---
24 HR chart check completed.
--- NOTE | 2017-04-14 06:49 | NUR ---
PT SLEPT APPROXIMATELY 7 HOURS THIS SHIFT.
--- NOTE | 2017-04-14 08:46 | NUR ---
SW called [facility] to check on status of pasrr, it has now been submitted to the state but has not been approved as of yet.
[2017-04-14] MEDS ORDERED: LACTULOSE20 GM/30 M PO (08:48)
[2017-04-14] MEDS ORDERED: Vitamin D PO (08:48)
[2017-04-14] MEDS ORDERED: MEMANTINE HCL10 MG PO (08:48)
[2017-04-14] MEDS ORDERED: MIRTAZAPINE15 M2 PO (08:48)
[2017-04-14] MEDS ORDERED: HYDROXYZINE PAM25 M1 PO (08:48)
[2017-04-14] MEDS ORDERED: EXELON13.3 MG/21 T (08:48)
[2017-04-14 08:55] VITALS: BP 142/79
--- NOTE | 2017-04-14 09:01 | NUR ---
04/13/17 Afternoon:Coping with various feeelings/Emojie face suncatcher Patient did not attend group. Patient encourage to join but stated she was "not in the mood"for it. Patient encouraged to join if her mood changed
--- NOTE | 2017-04-14 09:54 | NUR ---
PATIENT SEEN 1:1 OT THIS DATE 15 MINUTES.PATIENT IDENTIFIED BY NAME AND DATE OF . PATIENT VERBALIZED THAT SHE WISHED PEOPLE WOULD LEAVE HER ALONE HOWEVER WILLING TO COMPLETE THERAPY THIS DATE TO TOLERANCE. PATIENT COMPLETED GROOMING STANDING AT SINK SUPERVISION COMB HAIR AND WASH HANDS THIS DATE. PATIENT COMPLETED TOILETING DE AND LB DRESSING CHANGING DEPENDS DE LA CRUZ. PATIENT COMPLETED SAFETY EDUCATION USE FWW AMBULATING IN HALLWAY SBA WITH VERBAL CUES PACE SELF FOR SAFETY AND FALL PREVENTION. PATIENT REQUIRED EDUCATION FOR FACILITATION OF USE FWW THIS DATE. PATIENT APPEARED ANXIOUS AT TIMES AND REQUIRED REDIRECTION. PATIENT REPORTS THAT SHE DOES NOT WANT TO GO TO GROUP SESSION THIS DATE. PATIENT IN ROOM AT END OF SESSION. REBA BRUNER/Jeff
--- NOTE | 2017-04-14 10:08 | NUR ---
PT IS ALERT AND ORIENTED TO PERSON, PLACE, APPROXIMATE TIME. ST/LT MEMORY DEFICITS NOTED. RESPIRATIONS EASY ON ROOM AIR. MOOD IS ANGRY/IRRITABLE, PT CONTINUES TO BE PREOCCUPIED WITH "GOING TO THE COURT TO GET MY POWER OF RADIATION SAFETY OFFICER OVERTURNED." PT STATES "DR. AMBROSE IS TWO-FACED, I DON'T KNOW, I DON'T WANT TO STAY HERE 24/, WOULD YOU?" ATTEMPTED TO PROVIDE EMOTIONAL SUPPORT AND REASSURE PT DR. AMBROSE AND THE TREATMENT TEAM HAVE HER SAFETY THE MAIN PRIORITY. PT DISMISSES THIS IDEA. PT DENIES HALLUCINATIONS, NO RESPONSE TO INTERNAL STIMULI NOTED. PT DENIES SI/HI. MEDICATION COMPLIANT WITH THE EXCEPTION OF LACTULOSE, PT STATES "NO, IT'LL GIVE ME THE DIARRHEA DURING LUNCH." MED EDUCATION PROVIDED, PT CONTINUES TO REFUSE THIS MEDICATION. PT IS AMBULATORY, GAIT STEADY WITH WHEELED WALKER, INDEPENDENT WITH ADLS, GOOD APPETITE WITH ADEQUATE FLUID INTAKE. NO DISTRESS NOTED. Q15 MIN SAFETY CHECKS MAINTAINED, REFER TO [facility] FLOWSHEET FOR SPECIFIC MONITORING.
--- NOTE | 2017-04-14 10:31 | NUR ---
Updated Ortiz, comm. liajeanineon from [facility] that pasrr still not back will call again by 3pm. asked ortiz how late pt. can be admitted this evening if pasrr back?
--- NOTE | 2017-04-14 10:33 | NUR ---
DR. ROBERTS, DR. TYLER AND DR. SANCHEZ HERE TO SEE PT AT THIS TIME. MADE AWARE PT REQUESTING TYLENOL TWO TABS PRN INSTEAD OF ONE TAB PRN, ORDER ADJUSTED BY DR. TYLER.
--- NOTE | 2017-04-14 10:38 | NUR ---
D/C paperwork completed. pt. can be d/c'ed at anytime per Lydia, comm. liasion to [facility] once pasrr is back. An ambulance will need to be arranged once the pasrr is back.
--- NOTE | 2017-04-14 11:38 | NUR ---
Goals/Exercise/Reminiscing Patient was with Therapy Assisstant well group started. Patient stated after therapy she would come to group. Patient did not show up until group was over.
--- NOTE | 2017-04-14 12:07 | NUR ---
State office closed today. pt. will be here until Monday.
--- NOTE | 2017-04-14 14:20 | NUR ---
ISSAC RECIEVED FROM THE STATE. DR. ROBERTS AND DR. AMBROSE NOTIFIED, PT TO BE DISCHARGED THIS AFTERNOON/EVENING.
--- NOTE | 2017-04-14 16:16 | NUR ---
SPOKE TO ELIEZER FROM [facility], MADE AWARE WE HAVE RECIEVED PASRR BACK, ELIEZER STATES EVERYTHING IS READY FOR HER TO BE DISCHARGED TO [facility].
--- NOTE | 2017-04-14 16:21 | NUR ---
SPOKE TO LUNA AT [facility], TRANSPORTATION ARRANGED FOR 6:30PM TO [facility].
--- NOTE | 2017-04-14 16:21 | NUR ---
SPOKE TO PT'S KLAUDIA CM, MADE AWARE PT IS BEING DISCHARGED TODAY AROUND 6:30PM. ADDRESS AND PHONE NUMBER FOR [place] PROVIDED TO KLAUDIA. KLAUDIA THANKFUL FOR THE CALL.
--- NOTE | 2017-04-14 17:36 | NUR ---
NURSE TO NURSE REPORT GIVEN TO NURSE INA AT [facility]. MEDICATION LIST AND DISCHARGE INSTRUCTIONS FAXED PER REQUEST.
--- NOTE | 2017-04-14 17:39 | NUR ---
PT ANXIOUS REGARDING BEING DISCHARGED TO [facility], PT COMING UP TO DESK MULTIPLE TIMES, DIFFICULT TO CALM OR REDIRECT. DR. AMBROSE STATES TO GIVE ATIVAN 2MG PO 15 MIN PRIOR TO TRANSPORTATION. MELLISSA PROFILED FOR 1809 PT IS TO BE PICKED UP APPROX 1829.
--- NOTE | 2017-04-14 18:12 | NUR ---
2MG ATIVAN PO GIVEN AT THIS TIME PER THE DIRECTION OF DR. AMBROSE FOR INCREASED ANXIETY IN ANTICIPATION OF DISCHARGE WITH P/U TIME OF 1830.
--- NOTE | 2017-04-14 18:50 | NUR ---
PT DISCHARGED AT THIS TIME TO [facility] VIA [facility]. ALL DISCHARGE INSTRUCTIONS AND MEDICATION LISTS SENT TO FACILITY. COPIES OF ALL PAPERWORK PREPARED TO BE SENT TO [facility]. ALL PERSONAL BELONGINGS INCLUDING LOCK BOX ITEMS SENT WITH THE PT. PT LEFT THE UNIT IN STABLE CONDITION.
--- NOTE | 2017-04-17 07:13 | NUR ---
PHYSICAL THERAPY CO-SIGN I approve of the Phyical Therapy notes written above. YENIFER ZHANG PT
--- NOTE | 2017-04-17 08:05 | NUR ---
OCCUPATIONAL THERAPY CO-SIGN I approve of the Occupational Therapy notes written above. ORLANDO GUPTA OTR/Jeff
== END 2017-04-14 18:52 | disposition other institution (70) | DRG 885 ==
LOC: 3N 13:26
PROVIDERS: Student in an Organized Health Care Education/Training Program; ADMIT Psychiatry & Neurology Psychiatry
DX: F33.2 Major depressive disorder, recurrent severe without psychotic features (principal); D69.6 Thrombocytopenia, unspecified; E87.8 Other disorders of electrolyte and fluid balance, not elsewhere classified; E87.1 Hypo-osmolality and hyponatremia; I25.810 Atherosclerosis of coronary artery bypass graft(s) without angina pectoris; G40.909 Epilepsy, unspecified, not intractable, without status epilepticus; I16.1 Hypertensive emergency; Z68.1 Body mass index [BMI] 19.9 or less, adult; F41.9 Anxiety disorder, unspecified; R78.89 Finding of other specified substances, not normally found in blood; E78.5 Hyperlipidemia, unspecified; G89.4 Chronic pain syndrome; M54.30 Sciatica, unspecified side; K21.9 Gastro-esophageal reflux disease without esophagitis; I10 Essential (primary) hypertension; R73.03 Prediabetes; E55.9 Vitamin D deficiency, unspecified; D72.810 Lymphocytopenia; E87.6 Hypokalemia; R00.1 Bradycardia, unspecified; R63.6 Underweight; R63.0 Anorexia; Z88.8 Allergy status to other drugs, medicaments and biological substances; Z91.041 Radiographic dye allergy status; Z90.710 Acquired absence of both cervix and uterus; Z90.49 Acquired absence of other specified parts of digestive tract; Z90.721 Acquired absence of ovaries, unilateral; Z95.1 Presence of aortocoronary bypass graft; Z83.3 Family history of diabetes mellitus; Z82.0 Family history of epilepsy and other diseases of the nervous system; Z82.49 Family history of ischemic heart disease and other diseases of the circulatory system